=== PATIENT | female | born 2000 | race Caucasian/White ===

== ENCOUNTER 2021-04-19 12:10 | Emergency (ER) | payer MEDICAID, SELFPAY ==
[2021-04-19 12:18] VITALS: BP 113/66; PULSE 89; RESP 15; TEMP 36.9; O2SAT 100; BMI 20.2
--- NOTE | 2021-04-19 12:24 | USR_ITS ---
PROCEDURE INFORMATION: Exam: US , Limited Exam date and time: 04/19/2021 12:24 PM Age: 21 years old Clinical indication: 2nd trimester with vaginal bleeding. Threatened . TECHNIQUE: Imaging protocol: Real-time ultrasound of the maternal uterus with image documentation. Exam focused on the clinical indication. COMPARISON: US pelvic with transvaginal 04/15/2017 11:09 AM FINDINGS: There is a single, live intrauterine gestation with heart rate of 150 bpm. The cervix is closed and measures 3.1 cm in length. The position is vertex. The placenta is situated anteriorly. There is no evidence of placental abruption. US/US OB limited [id number] IMPRESSION: 1. Single, live intrauterine gestation. 2. No acute abnormality is identified. 3. The anatomy was not assessed.
--- NOTE | 2021-04-19 12:28 | W.ED.GENADLT ---
HPI - General Adult General: Chief complaint: Vaginal Bleeding Stated complaint: cramping, bleeding 18 weeks Time Seen by Provider: 04/19/21 12:22 History of Present Illness: HPI narrative: This patient is a 21-year-old female that is a G4, P2 at 18 weeks . Patient has had 1 spontaneous . Patient presents to the emergency department for a couple days worth of vaginal discharge than progressed in this noting bright red blood on panty liner. Patient has had to change to panty liners today due to bleeding. Patient states this has been uneventful up until now. Patient denies any recent sexual activity. Patient denies any significant pelvic cramping. Will do medical evaluation treat as needed Associated symptoms: Deny chest pain, dyspnea, headache(s), nausea, rash, palpitations or vomiting Review of Systems General: Reports: 10 or more systems reviewed and unremarkable except in HPI and below Const: Denies: fever(s), chills, body aches or fatigue Eyes: Denies: change in vision or blurry vision ENMT: Denies: throat pain, hoarseness or mouth pain Card: Denies: chest pain, palpitations, irregular heart rhythm, edema, swelling of feet/ankles or lightheadedness Resp: Denies: dyspnea, productive cough, non-productive cough, wheezing or pain on inspiration GI: Denies: abdominal pain, nausea or vomiting : Reports: vaginal bleeding and vaginal discharge; Denies: flank pain, difficulty voiding, dysuria, urinary frequency, urinary urgency or urinary hesitancy Musc: Denies: neck pain, back pain, extremity pain, extremity swelling, joint pain, joint swelling, joint redness, joint warmth or limited range of motion Skin/Breast: Denies: rash, pruritus, erythema or skin tenderness Neuro: Denies: headache(s), numbness in extremities or weakness in extremities Psych: Denies: anxiety or depression [facility] ED Female Reproductive History: Date of last menstrual period: 12/14/20 Physical Exam Const: COMMON NORMALS: no acute distress, average body habitus, patient oriented x3, no limitations, healthy appearing, alert and well nourished HENMT: COMMON NORMALS: normocephalic, atraumatic, hearing grossly normal bilaterally, external ears normal, EAC's normal, TM's normal bilaterally, Normal external nose present, Normal nasal mucous membranes and turbinates present, moist oral mucous membranes, oropharynx normal, dentition normal and gingiva normal HEAD & SCALP: normocephalic and atraumatic NOSE: Normal external nose present and Normal nasal mucous membranes and turbinates present EXTERNAL EAR: Yes external ears normal EXTERNAL AUDITORY CANAL: EAC's normal TYMPANIC MEMBRANE: TM's normal bilaterally Neck/C-Spine: COMMON NORMALS: full ROM, no lymphadenopathy, supple, no meningeal signs, no JVD, Thyroid normal and No carotid bruits THYROID: Thyroid normal Chest: COMMONS NORMALS: normal inspection of the chest, normal palpation of entire chest wall, normal inspection of the breasts and normal palpation of the breasts Breast/axilla inspection: Yes normal inspection of the breasts BREAST/AXILLA PALPATION: Yes normal palpation of the breasts Resp: COMMON NORMALS: normal respiratory effort, No retractions, No use of accessory muscles, clear to auscultation bilaterally and percussion normal AUSCULTATION: clear to auscultation bilaterally PERCUSSION: percussion normal Cardio: COMMON NORMALS: no JVD, regular rate, regular rhythm, S1 normal heart sound present, S2 normal heart sound present, No gallops present (Cardio), No clicks present (Cardio), No murmurs present (Cardio), No rub (Cardio) and Peripheral pulses 2+ throughout RATE: regular rate RHYTHM: regular rhythm HEART SOUNDS: S1 normal heart sound present and S2 normal heart sound present PERIPHERAL PULSES: Peripheral pulses 2+ throughout GI: COMMON NORMALS: Normal to inspection, nondistended, normoactive bowel sounds present, Soft to palpation, non-tender, No hepatosplenomegaly present, no masses and no bruits PALPATION: Yes Soft to palpation and Yes No hepatosplenomegaly present : COMMON NORMALS: Yes no CVA tenderness BLADDER/KIDNEY EXAM: Yes no CVA tenderness BIMANUAL EXAM - ADNEXA, OTHER: Yes Other (Deferred) Back/Pelvis: COMMON NORMALS: no CVA tenderness, thoracic and lumbar spine normal to inspection, no thoracic nor lumbar tenderness, thoraco-lumbar ROM normal and straight leg raise negative bilaterally Extremity: COMMON NORMALS: normal to inspection, full ROM, capillary refill normal, no joint enlargement, no clubbing, cyanosis or edema, no calf tenderness and no pedal edema Neuro: COMMON NORMALS: patient oriented x3 SENSORIUM/ORIENTATION: Yes alert MENINGEAL SIGNS: Yes no meningeal signs Course Vital Signs: Vital signs: Vital Signs Temperature 98.5 F 04/19/21 12:18 Pulse Rate 80 04/19/21 13:56 Respiratory Rate 16 04/19/21 13:56 Blood Pressure 119/59 04/19/21 13:56 Pulse Oximetry 100 04/19/21 13:56 MDM - General Adult MDM Narrative: Medical decision making narrative: This patient is a 21-year-old female that is a G4, P2 at 18 weeks . Patient has had 1 spontaneous . Patient presents to the emergency department for a couple days worth of vaginal discharge than progressed in this noting bright red blood on panty liner. Patient has had to change to panty liners today due to bleeding. Patient states this has been uneventful up until now. Patient denies any recent sexual activity. Patient denies any significant pelvic cramping. Medical Records: Attestation: I reviewed the patient's medical records. Lab Data: Attestation: I reviewed the patient's lab results. Labs: Lab Results 04/19/21 04/19/21 04/19/21 Range/Units 12:40 12:45 12:45 WBC 6.4 (4.0-10.0) 10^3/ uL RBC 4.08 L (4.1-5.3) 10^6/u L Hgb 11.2 L (11.5-15.3) g/dL Hct 33.8 L (37.0-47.0) % MCV 82.8 (81-99) fL MCH 27.5 L (28.0-34.0) pg MCHC 33.1 (30.0-36.0) g/dL RDW 14.2 (12.1-15.1) % Plt Count 258 (130-400) 10^3/c mm MPV 9.5 (7.4-10.4) fL Neut % (Auto) 66.7 % Lymph % (Auto) 23.6 % Sutton % (Auto) 7.7 % Eos % (Auto) 1.1 % Baso % (Auto) 0.6 % Neut # (Auto) 4.27 (1.8-7.7) 10^3/u L Lymph # (Auto) 1.5 (0.8-4.8) 10^3/u L Sutton # (Auto) 0.5 (0.2-0.9) 10^3/u L Eos # (Auto) 0.1 (0.0-0.8) 10^3/u L Baso # (Auto) 0.0 (0.0-0.1) 10^3/u L Nucleated RBC % (a uto) 0 % Nucleated RBCs # 0.0 /100WBC PT (12.1-14.9) SECO NDS INR (0.8-1.2) APTT (23.9-36.7) SECO NDS Sodium (136-145) mmol/L Potassium (3.5-5.1) mmol/L Chloride (98-107) mmol/L Carbon Dioxide (22-29) mmol/L Anion Gap (5-19) BUN (6-20) mg/dL Creatinine (0.5-0.9) mg/dL GFR Calculation (90-130) mL/min Glucose (65-115) mg/dL Calculated Osmolal ity (285-295) mOsm/k g Calcium (8.5-10.5) mg/dL Total Bilirubin (0.15-1.2) mg/dL AST (0-32) U/L ALT (0-33) U/L Alkaline Phosphata se (35-105) IU/L Total Protein (6.6-8.7) g/dL Albumin (3.5-5.2) g/dL Globulin (1.3-4.6) g/dL Ser , Miesha i-Qnt mIU/mL Urine Color Yellow (Yellow) Urine Appearance Hazy A (CLEAR) Urine pH 5 (5-7) Ur Specific Gravit y 1.025 (1.005-1.030) Urine Protein Neg (Negative) Urine Glucose (UA) Norm (Normal) Urine Ketones Negative (Negative) Urine Blood 3+ H (Negative) Urine Nitrate Negative (Negative) Urine Bilirubin 1+ H (Negative) Urine Urobilinogen 4 H (Negative) mg/dL Ur Leukocyte Ann ase 2+ H (Negative) Urine RBC 15-25 H (0-2) /hpf Urine WBC 25-40 H (0-5) /hpf Ur Squamous Epith Cells 15-25 H (0-5) /hpf Amorphous Sediment 1+ /hpf Urine Bacteria 2+ H (NONE) /hpf Urine Mucus 2+ /hpf Blood Type B Positive Rho(D) Type Positive / 4+ 04/19/21 04/19/21 04/19/21 Range/Units 12:45 12:45 12:45 WBC (4.0-10.0) 10^3/ uL RBC (4.1-5.3) 10^6/u L Hgb (11.5-15.3) g/dL Hct (37.0-47.0) % MCV (81-99) fL MCH (28.0-34.0) pg MCHC (30.0-36.0) g/dL RDW (12.1-15.1) % Plt Count (130-400) 10^3/c mm MPV (7.4-10.4) fL Neut % (Auto) % Lymph % (Auto) % Sutton % (Auto) % Eos % (Auto) % Baso % (Auto) % Neut # (Auto) (1.8-7.7) 10^3/u L Lymph # (Auto) (0.8-4.8) 10^3/u L Sutton # (Auto) (0.2-0.9) 10^3/u L Eos # (Auto) (0.0-0.8) 10^3/u L Baso # (Auto) (0.0-0.1) 10^3/u L Nucleated RBC % (a uto) % Nucleated RBCs # /100WBC PT 13.00 (12.1-14.9) SECO NDS INR 0.95 (0.8-1.2) APTT 29.8 (23.9-36.7) SECO NDS Sodium 128 L (136-145) mmol/L Potassium 3.5 (3.5-5.1) mmol/L Chloride 96 L (98-107) mmol/L Carbon Dioxide 23 (22-29) mmol/L Anion Gap 12.5 (5-19) BUN 6 (6-20) mg/dL Creatinine 0.3 L (0.5-0.9) mg/dL GFR Calculation 280.8 H (90-130) mL/min Glucose 85 (65-115) mg/dL Calculated Osmolal ity 263 L (285-295) mOsm/k g Calcium 8.6 (8.5-10.5) mg/dL Total Bilirubin 0.4 (0.15-1.2) mg/dL AST 13 (0-32) U/L ALT 13 (0-33) U/L Alkaline Phosphata se 98 (35-105) IU/L Total Protein 6.5 L (6.6-8.7) g/dL Albumin 3.9 (3.5-5.2) g/dL Globulin 2.6 (1.3-4.6) g/dL Ser , Miesha i-Qnt 9750.00 mIU/mL Urine Color (Yellow) Urine Appearance (CLEAR) Urine pH (5-7) Ur Specific Gravit y (1.005-1.030) Urine Protein (Negative) Urine Glucose (UA) (Normal) Urine Ketones (Negative) Urine Blood (Negative) Urine Nitrate (Negative) Urine Bilirubin (Negative) Urine Urobilinogen (Negative) mg/dL Ur Leukocyte Ann ase (Negative) Urine RBC (0-2) /hpf Urine WBC (0-5) /hpf Ur Squamous Epith Cells (0-5) /hpf Amorphous Sediment /hpf Urine Bacteria (NONE) /hpf Urine Mucus /hpf Blood Type Rho(D) Type Imaging Data^: US: Attestation: I personally reviewed and interpreted this imaging study as follows: Radiologist's impression: IMPRESSION: 1. Single, live intrauterine gestation. 2. No acute abnormality is identified. 3. The anatomy was not assessed. Discharge Plan Discharge Patient Disposition: Home Clinical Impression: Vaginal bleeding, Vaginal discharge Condition: Stable Prescriptions: New metronidazole [Flagyl] 500 mg tablet 500 mg PO BID 7 Days Qty: 14 RF: 0 No Action Humira Pen 80 mg SUBCUT Q12D RF: 0 1 tab PO DAILY RF: 0 Discharge Orders: Discharge ED (Routine); Ordered 04/19/21 Ordered By: Freddy Vargas Discharge Diet: Advance as tolerated Discharge Activity: Resume usual activity Patient Instructions: Opioid Safety Activity Restrictions/Additional Instructions: Take medications as instructed. Encourage p.o. fluids. Follow-up with your FIELD MARKETING REPRESENTATIVE in 2 to 3 days for further evaluation and treatment. Coding Level of Care Code ED Drywall Stripper for Chg Fwd Exam Comprehensive
[2021-04-19] MEDS: sodium chloride 0.9% 1,000 ML 999 ML IV (12:44)
--- NOTE | 2021-04-19 12:48 | PC.NURSE ---
heart tone 154
[2021-04-19 12:54] LABS: Basophils % 0.6 %; Eosinophils # 0.1 10^3/uL (0.0-0.8); Eosinophils % 1.1 %; Hematocrit 33.8 % (37.0-47.0); Hemoglobin 11.2 g/dL (11.5-15.3); Lymphocytes # 1.5 10^3/uL (0.8-4.8); Lymphocytes % 23.6 %; Mean Corpuscular HGB Conc 33.1 g/dL (30.0-36.0); Mean Corpuscular Hemoglobin 27.5 pg (28.0-34.0); Mean Corpuscular Volume 82.8 fL (81-99); Mean Platelet Volume 9.5 fL (7.4-10.4); Monocytes # 0.5 10^3/uL (0.2-0.9); Monocytes % 7.7 %; Neutrophils # 4.27 10^3/uL (1.8-7.7); Neutrophils % 66.7 %; Nucleated Red Blood Cells % 0 %; Platelet Count 258 10^3/cmm (130-400); Red Blood Count 4.08 10^6/uL (4.1-5.3); Red Cell Distribution Width 14.2 % (12.1-15.1); White Blood Count 6.4 10^3/uL (4.0-10.0)
[2021-04-19 12:57] LABS: Urine Appearance Hazy (CLEAR); Urine Color Yellow (Yellow); pH Urine 5 (5-7)
[2021-04-19 12:58] LABS: Add Urine Microscopic? YES; Bilirubin Urine 1+ (Negative); Blood Urine 3+ (Negative); Glucose Urine UA Norm (Normal); Ketones Urine Negative (Negative); Leukocyte Esterase Urine 2+ (Negative); Nitrate Urine Negative (Negative); Protein Urine Neg (Negative); Specific Gravity, Urine 1.025 (1.005-1.030); Urobilinogen Urine 4 mg/dL (Negative)
[2021-04-19 13:00] LABS: Amorphous Sediment Urine 1+ /hpf; Bacteria Urine 2+ /hpf; Mucus Urine 2+ /hpf; RBC Urine 15-25 /hpf (0-2); Squamous Epithelial Cell Urine 15-25 /hpf (0-5); WBC Urine 25-40 /hpf (0-5)
[2021-04-19 13:01] LABS: Add Urine Culture? No
[2021-04-19 13:12] LABS: INR 0.95 (0.8-1.2)
[2021-04-19 13:13] LABS: Partial Thromboplastin Time 29.8 SECONDS (23.9-36.7)
[2021-04-19 13:23] LABS: Alanine Aminotransferase 13 U/L (0-33); Albumin Level 3.9 g/dL (3.5-5.2); Alkaline Phosphatase 98 IU/L (35-105); Anion Gap 12.5 (5-19); Aspartate Amino Transferase 13 U/L (0-32); Blood Urea Nitrogen 6 mg/dL (6-20); Calcium 8.6 mg/dL (8.5-10.5); Carbon Dioxide 23 mmol/L (22-29); Chloride 96 mmol/L (98-107); Globulin 2.6 g/dL (1.3-4.6); Glomerular Filtration Rate 280.8 mL/min (90-130); Glucose 85 mg/dL (65-115); Osmolality Calculated 263 mOsm/kg (285-295); Potassium 3.5 mmol/L (3.5-5.1); Sodium 128 mmol/L (136-145); Total Bilirubin 0.4 mg/dL (0.15-1.2); Total Protein 6.5 g/dL (6.6-8.7)
[2021-04-19 13:56] VITALS: BP 119/59; PULSE 80; RESP 16; O2SAT 100
[2021-04-19] MEDS: metroNIDAZOLE 500 MG Tablet PO (15:30)
[2021-04-19 15:33] VITALS: BP 116/73; PULSE 87; O2SAT 100
== END 2021-04-19 15:34 | disposition home or self-care (01) ==
PROVIDERS: Emergency Provider Emergency Medicine
DX: O46.92 Antepartum hemorrhage, unspecified, second trimester (principal); O26.892 Other specified pregnancy related conditions, second trimester; N89.8 Other specified noninflammatory disorders of vagina; Z3A.18 18 weeks gestation of pregnancy
CPT/HCPCS: 76815; 80053; 81001; 84702; 85025; 85610; 85730; 86900; 87491; 87591; 96360; 99283; 99284; J7030

== ENCOUNTER → 2021-04-22 11:44 | Outpatient (BNVA) | payer MEDICAID, SELFPAY | PROVIDERS: Visit Provider Nurse Practitioner Women's Health | DX: O09.899 Supervision of other high risk pregnancies, unspecified trimester; Z3A.00 Weeks of gestation of pregnancy not specified | CPT/HCPCS: 81000 ==

== ENCOUNTER → 2021-05-04 09:30 | Outpatient (BNVA) | payer MEDICAID, SELFPAY | PROVIDERS: Visit Provider Obstetrics & Gynecology | DX: O09.899 Supervision of other high risk pregnancies, unspecified trimester (principal); Z3A.00 Weeks of gestation of pregnancy not specified | CPT/HCPCS: 80307; 81000; 85025; 86592; 86762; 86787; 86803; 86850; 86900; 87086; 87340; 87491; 87591; 87661; 87806; 88175 ==

== ENCOUNTER → 2021-06-11 13:01 | Outpatient (BNVA) | payer MEDICAID, SELFPAY | PROVIDERS: Visit Provider Counselor Professional | DX: F41.1 Generalized anxiety disorder (principal); F33.9 Major depressive disorder, recurrent, unspecified | CPT/HCPCS: 90834 ==

== ENCOUNTER 2021-06-26 16:23 | Outpatient (CLI) | payer MEDICAID, SELFPAY ==
[2021-06-26] VITALS (8 sets, daily range): BP systolic 94–116; BP diastolic 58–70; PULSE 73–80; RESP 16; TEMP 35.7–36.6; BMI 21.9
[2021-06-26 18:42] LABS: Protein Urine Neg (Negative); Specific Gravity, Urine 1.015 (1.005-1.030); Urine Appearance Cloudy (CLEAR); Urine Color Yellow (Yellow); pH Urine 9 (5-7)
[2021-06-26 18:43] LABS: Add Urine Microscopic? YES; Amorphous Sediment Urine 4+ /hpf; Bacteria Urine TRACE /hpf; Bilirubin Urine Neg (Negative); Blood Urine Neg (Negative); Glucose Urine UA Norm (Normal); Ketones Urine Negative (Negative); Leukocyte Esterase Urine 2+ (Negative); Mucus Urine TRACE /hpf; Nitrate Urine Negative (Negative); RBC Urine 0-4 /hpf (0-2); Squamous Epithelial Cell Urine 0-4 /hpf (0-5); Sulfosalicylic Acid Urine Negative (Negative); Urobilinogen Urine Norm (Negative)
[2021-06-26 18:44] LABS: Add Urine Culture? No
== END 2021-06-26 19:03 | disposition home or self-care (01) ==
LOC: OPOB 16:26 → OBGYN 16:27
PROVIDERS: Visit Provider Family Medicine
DX: O26.899 Other specified pregnancy related conditions, unspecified trimester (principal); Z3A.00 Weeks of gestation of pregnancy not specified; R42 Dizziness and giddiness; R11.0 Nausea
CPT/HCPCS: 81001; 99211

== ENCOUNTER 2021-07-19 17:10 | Outpatient (CLI) | payer MEDICAID, SELFPAY ==
[2021-07-19] VITALS (8 sets, daily range): BP systolic 109–117; BP diastolic 58–66; PULSE 73–82; RESP 17; TEMP 35.8; BMI 22.1
[2021-07-19] MEDS: cefTRIAXone 1,000 mg SDV 1000 MG IM (18:44)
[2021-07-19 19:17] LABS: Add Urine Microscopic? YES; Bilirubin Urine Neg (Negative); Blood Urine Neg (Negative); Glucose Urine UA Norm (Normal); Ketones Urine Negative (Negative); Leukocyte Esterase Urine 2+ (Negative); Nitrate Urine Negative (Negative); Protein Urine Neg (Negative); Urine Appearance Cloudy (CLEAR); Urine Color Yellow (Yellow); Urobilinogen Urine Norm (Negative); pH Urine 7 (5-7)
[2021-07-19 19:25] LABS: WBC Urine >100 /hpf (0-5)
[2021-07-19 19:26] LABS: Add Urine Culture? No; Bacteria Urine 3+ /hpf; Mucus Urine 2+ /hpf; Squamous Epithelial Cell Urine 40-55 /hpf (0-5)
== END 2021-07-19 19:00 | disposition home or self-care (01) ==
LOC: OPOB 17:19 → OBGYN 17:24
PROVIDERS: Visit Provider Family Medicine
DX: O21.9 Vomiting of pregnancy, unspecified (principal); Z3A.00 Weeks of gestation of pregnancy not specified; R10.9 Unspecified abdominal pain
CPT/HCPCS: 59025; 81001; 96372; 99211; J0696

== ENCOUNTER → 2021-07-20 15:04 | Outpatient (BNVA) | payer MEDICAID, SELFPAY | PROVIDERS: Visit Provider Counselor Professional | DX: F41.1 Generalized anxiety disorder (principal); F33.9 Major depressive disorder, recurrent, unspecified | CPT/HCPCS: 90834 ==

== ENCOUNTER 2021-08-09 11:02 | Outpatient (CLI) | payer MEDICAID, SELFPAY ==
[2021-08-09 11:11] VITALS: RESP 16
[2021-08-09 11:12] VITALS: BP 124/56; PULSE 64; BMI 22.6
[2021-08-09 11:27] VITALS: BP 120/61; PULSE 79
[2021-08-09 11:33] LABS: Actim Prom Negative
[2021-08-09 11:43] VITALS: BP 125/63; PULSE 77
[2021-08-09] MEDS: acetaminophen 500 mg Tablet 1000 MG PO (11:51)
[2021-08-09] MEDS: hyDROXYzine 25 mg Capsule 50 MG PO (11:51)
[2021-08-09 12:05] VITALS: BP 125/63; PULSE 77; TEMP 36.8
== END 2021-08-09 12:00 | disposition home or self-care (01) ==
LOC: OPOB 11:03 → OBGYN 11:04
PROVIDERS: Visit Provider Family Medicine
DX: O26.899 Other specified pregnancy related conditions, unspecified trimester (principal); Z3A.00 Weeks of gestation of pregnancy not specified; N89.8 Other specified noninflammatory disorders of vagina; Z91.81 History of falling
CPT/HCPCS: 59025; 84112; 99211

== ENCOUNTER → 2021-08-10 11:27 | Day surgery (SDC) | payer MEDICAID, SELFPAY ==
[2021-08-10 11:57] VITALS: BP 113/59; PULSE 68; RESP 18; TEMP 36.3; O2SAT 99; BMI 22.8
[2021-08-10] MEDS: iron sucrose 200 MG in sodium chloride 0.9% (100 ml) 100 ML 220 MG IV (12:15)
== END ==
PROVIDERS: PCP Family Medicine; Visit Provider Nurse Practitioner Women's Health
DX: O99.013 Anemia complicating pregnancy, third trimester (principal); O09.93 Supervision of high risk pregnancy, unspecified, third trimester; Z3A.00 Weeks of gestation of pregnancy not specified
CPT/HCPCS: 96365; J1756

== ENCOUNTER 2021-08-13 22:58 | Outpatient (CLI) | payer MEDICAID, SELFPAY ==
[2021-08-13] VITALS (7 sets, daily range): BP systolic 110–116; BP diastolic 55–56; PULSE 72–89; RESP 19; O2SAT 99–100; BMI 24.3
[2021-08-14] VITALS (25 sets, daily range): BP systolic 99–112; BP diastolic 54–64; PULSE 62–82; O2SAT 99–100
[2021-08-14] MEDS: sodium chloride 0.9% 1,000 ML 999 ML IV (00:20)
[2021-08-14 00:40] LABS: Basophils % 0.4 %; Eosinophils # 0.1 10^3/uL (0.0-0.8); Eosinophils % 1.1 %; Hematocrit 27.4 % (37.0-47.0); Hemoglobin 8.9 g/dL (11.5-15.3); Lymphocytes # 2.3 10^3/uL (0.8-4.8); Lymphocytes % 22.6 %; Mean Corpuscular HGB Conc 32.5 g/dL (30.0-36.0); Mean Corpuscular Hemoglobin 26.2 pg (28.0-34.0); Mean Corpuscular Volume 80.6 fl (81-99); Mean Platelet Volume 10.1 fL (7.4-10.4); Monocytes # 0.8 10^3/uL (0.2-0.9); Monocytes % 7.6 %; Neutrophils # 6.83 10^3/uL (1.8-7.7); Nucleated Red Blood Cells % 0 %; Platelet Count 250 10^3/cmm (130-400); Red Cell Distribution Width 14.5 % (12.1-15.1); White Blood Count 10.2 10^3/uL (4.0-10.0)
[2021-08-14 00:45] LABS: Add Urine Culture? No; Add Urine Microscopic? YES; Bacteria Urine 2+ /hpf; Bilirubin Urine Neg (Negative); Blood Urine Neg (Negative); Glucose Urine UA Norm (Normal); Ketones Urine Negative (Negative); Leukocyte Esterase Urine 2+ (Negative); Mucus Urine 1+ /hpf; Nitrate Urine Negative (Negative); Protein Urine Neg (Negative); Squamous Epithelial Cell Urine 40-55 /hpf (0-5); Sulfosalicylic Acid Urine Negative (Negative); Urine Appearance SL Hazy (CLEAR); Urine Color Yellow (Yellow); Urobilinogen Urine Norm (Negative); WBC Urine 25-40 /hpf (0-5); pH Urine 8 (5-7)
[2021-08-14 01:07] LABS: Alanine Aminotransferase 9 U/L (0-33); Albumin Level 3.1 g/dL (3.5-5.2); Alkaline Phosphatase 97 IU/L (35-105); Anion Gap 14.4 (5-19); Aspartate Amino Transferase 11 U/L (0-32); Blood Urea Nitrogen 5 mg/dL (6-20); Calcium 8.4 mg/dL (8.5-10.5); Carbon Dioxide 21 mmol/L (22-29); Chloride 105 mmol/L (98-107); Globulin 3.1 g/dL (1.3-4.6); Glomerular Filtration Rate 280.8 mL/min (90-130); Glucose 83 mg/dL (65-115); Osmolality Calculated 280 mOsm/kg (285-295); Potassium 3.4 mmol/L (3.5-5.1); Sodium 137 mmol/L (136-145); Total Bilirubin 0.2 mg/dL (0.15-1.2); Total Protein 6.2 g/dL (6.6-8.7)
--- NOTE | 2021-08-14 12:05 | PC.NURSE ---
called Yvonne Bunch, gave prescription information including: amoxicillin 875 mg BID for 7 days #14 no refills. Prescribing physician was Dr. Victor Hugo Mendoza.
== END 2021-08-14 02:00 | disposition home or self-care (01) ==
LOC: OPOB 23:09 → OBGYN 23:10
PROVIDERS: PCP Family Medicine; Visit Provider Family Medicine
DX: O26.899 Other specified pregnancy related conditions, unspecified trimester (principal); Z3A.00 Weeks of gestation of pregnancy not specified; R51.9 Headache, unspecified; H53.9 Unspecified visual disturbance
CPT/HCPCS: 36415; 59025; 80053; 81001; 85025; 99211; J7030

== ENCOUNTER → 2021-08-17 12:19 | Day surgery (SDC) | payer MEDICAID, SELFPAY ==
[2021-08-17 12:28] VITALS: BMI 22.8
[2021-08-17 12:31] VITALS: BP 106/57; PULSE 95; RESP 15; TEMP 36.2; O2SAT 96
[2021-08-17] MEDS: iron sucrose 200 MG in sodium chloride 0.9% (100 ml) 100 ML 220 MG IV (12:50)
== END ==
PROVIDERS: PCP Family Medicine; Visit Provider Nurse Practitioner Women's Health
DX: O99.013 Anemia complicating pregnancy, third trimester (principal); Z3A.00 Weeks of gestation of pregnancy not specified
CPT/HCPCS: 83993; 87493; 87506; 96365; J1756

== ENCOUNTER → 2021-08-24 12:56 | Day surgery (SDC) | payer MEDICAID, SELFPAY ==
[2021-08-24 13:00] VITALS: BP 108/52; PULSE 80; RESP 18; TEMP 36.1; O2SAT 95
[2021-08-24] MEDS: iron sucrose 200 MG in sodium chloride 0.9% (100 ml) 100 ML 220 MG IV (13:10)
== END ==
PROVIDERS: PCP Family Medicine; Visit Provider Nurse Practitioner Women's Health
DX: O99.013 Anemia complicating pregnancy, third trimester (principal); Z3A.00 Weeks of gestation of pregnancy not specified
CPT/HCPCS: 96365; J1756

== ENCOUNTER → 2021-09-02 11:04 | Day surgery (SDC) | payer MEDICAID, SELFPAY ==
[2021-09-02 11:10] VITALS: BP 106/54; PULSE 87; RESP 18; TEMP 36.3; O2SAT 99; BMI 23.6
[2021-09-02] MEDS: iron sucrose 200 MG in sodium chloride 0.9% (100 ml) 100 ML 220 MG IV (11:42)
== END ==
PROVIDERS: PCP Family Medicine; Visit Provider Nurse Practitioner Women's Health
DX: O09.93 Supervision of high risk pregnancy, unspecified, third trimester (principal); O99.013 Anemia complicating pregnancy, third trimester; Z3A.00 Weeks of gestation of pregnancy not specified
CPT/HCPCS: 96365; J1756

== ENCOUNTER → 2021-09-07 11:20 | Day surgery (SDC) | payer MEDICAID, SELFPAY ==
[2021-09-07 11:45] VITALS: BP 103/53; PULSE 89; RESP 18; TEMP 36.3; O2SAT 97
[2021-09-07] MEDS: iron sucrose 200 MG in sodium chloride 0.9% (100 ml) 100 ML 220 MG IV (11:58)
== END ==
PROVIDERS: PCP Family Medicine; Visit Provider Nurse Practitioner Women's Health
DX: O99.013 Anemia complicating pregnancy, third trimester (principal); D64.9 Anemia, unspecified
CPT/HCPCS: 96365; J1756

== ENCOUNTER 2021-09-09 20:15 | Outpatient (CLI) | payer MEDICAID, SELFPAY ==
[2021-09-09 20:28] VITALS: BP 120/71; PULSE 96
[2021-09-09 20:33] VITALS: RESP 15
[2021-09-09 20:34] VITALS: BMI 25.9
[2021-09-09 20:49] VITALS: BP 118/63; PULSE 80
[2021-09-09 21:09] VITALS: BP 114/67; PULSE 109
[2021-09-09 21:25] LABS: Actim Prom Negative
[2021-09-09 21:29] VITALS: BP 112/57; PULSE 100
== END 2021-09-09 21:38 | disposition home or self-care (01) ==
LOC: OPOB 20:25 → OBGYN 20:26
PROVIDERS: PCP Family Medicine; Visit Provider Family Medicine
DX: O47.9 False labor, unspecified (principal)
CPT/HCPCS: 59025; 84112; 99211

== ENCOUNTER 2021-09-16 07:26 | Inpatient (IN) | payer MEDICAID, SELFPAY ==
[2021-09-16] VITALS (77 sets, daily range): BP systolic 97–187; BP diastolic 50–80; PULSE 60–113; RESP 16–17; TEMP 36.4–36.9; O2SAT 87–100; BMI 26.7
[2021-09-16] MEDS: oxytocin 30 UNIT/500 ML BAG IV (08:51)
[2021-09-16] MEDS: dextrose 5%-lactated ringers 1,000 ML 125 ML IV (08:52)
[2021-09-16 10:45] LABS: Basophils # 0.1 10^3/uL (0.0-0.1); Basophils % 0.6 %; Eosinophils # 0.1 10^3/uL (0.0-0.8); Eosinophils % 0.6 %; Hematocrit 32.8 % (37.0-47.0); Lymphocytes # 1.8 10^3/uL (0.8-4.8); Lymphocytes % 17.3 %; Mean Corpuscular HGB Conc 33.5 g/dL (30.0-36.0); Mean Corpuscular Hemoglobin 28.2 pg (28.0-34.0); Mean Corpuscular Volume 84.1 fl (81-99); Mean Platelet Volume 9.8 fL (7.4-10.4); Monocytes # 0.9 10^3/uL (0.2-0.9); Monocytes % 8.4 %; Neutrophils # 7.37 10^3/uL (1.8-7.7); Nucleated Red Blood Cells % 0 %; Platelet Count 271 10^3/cmm (130-400); Red Cell Distribution Width 19.3 % (12.1-15.1); White Blood Count 10.2 10^3/uL (4.0-10.0)
[2021-09-16] MEDS: lactated ringers 1,000 ML 999 ML IV ×2 (11:30→12:32)
--- NOTE | 2021-09-16 11:53 | P.ANESASSM_ITS ---
Pre-Anesthetic Assessment Pre-Anesthetic Assessment: Height/Weight: Height 1.6 m Weight 68.492 kg Pulse Resp BP Pulse Ox 76 17 124/66 93 09/16/21 11:51 09/16/21 08:06 09/16/21 11:49 09/16/21 11:51 Preop Diagnosis: Labor pain Proposed Procedure: ALBAN Was Beta Jose taken within 24 hours: N/A Was Clonidine taken within 24 hours: N/A Social: Social History: No alcohol and No tobacco Exam: Pre-Anes Outpt Exam: alert, oriented x 3, clear to auscultation bilaterally and regular rate & rhythm Airway: Submandibular: WNL Cervical ROM: WNL MP: 2 Dentition: Full History/ROS: No significant history except as noted and No significant complaints Pulmonary: Pulmonary: Asthma CV/HEM: CV/HEM: None reported : : None reported Hepatic: Hepatic: None reported GI: Comments: Chrones Metabolic: Metabolic: None reported Musc/skel: Musc/skel: None reported Neuropsych: Neuropsych: None reported Anesthetic Plan: ASA status: 2 Anesthesia: Anesthesia Evaluation and Regional (specify below) Other: ALBAN Risk of > 500 ml blood loss (7ml/kg in children): No Meds/Allergies Current Medications: Current Medications Generic Name Dose Route Start Last Admin Trade Name Freq PRN Reason Stop Dose Admin Oxytocin 30 unit in 500 ml s @ 1 mls/hr 09/16/21 08:15 09/16/21 10:25 Pitocin IV 13 milliunit/min .Q24H ZAID 13 mls/hr Titration Protocol 1 MILLIUNIT/MIN Dextrose/Lactated Ringer's 1,000 mls @ 125 m ls/hr 09/16/21 08:15 09/16/21 08:52 Dextrose 5%-Lact ated Ringers IV 125 mls/hr .Q8H ZAID Administration PFSH Anesthesia PFSH: Medical History (Updated 07/22/21 @ 16:46 by Karen Johnson) Crohn disease No pertinent past medical history neghx: htn,dm,thyroid,dvt/pe PCP: none Psychiatric care Surgical History History of tonsillectomy and adenoidectomy (~2006) Hx of wisdom tooth extraction (~2016) Family History Family/Other Colon cancer Paternal Great Uncle--dx age 43 Thyroid disease Maternal side in general Grandmother Diabetes Maternal Heart disease Maternal Hypertension Maternal Grandfather Heart disease Paternal Denies family history of Ovarian cancer Hypercholesteremia Breast cancer Uterine cancer Stroke Female Reproductive History: Date of last menstrual period: 12/14/20 : 4 Data Anesthesia CBC & Chem 7: 09/16/21 07:50 Other Labs: Laboratory Results - last 48 hr 09/16/21 07:50 WBC 10.2 H RBC 3.90 L Hgb 11.0 L Hct 32.8 L MCV 84.1 MCH 28.2 MCHC 33.5 RDW 19.3 H Plt Count 271 MPV 9.8 Neut % (Auto) 72.0 Lymph % (Auto) 17.3 Reynolds % (Auto) 8.4 Eos % (Auto) 0.6 Baso % (Auto) 0.6 Neut # (Auto) 7.37 Lymph # (Auto) 1.8 Reynolds # (Auto) 0.9 Eos # (Auto) 0.1 Baso # (Auto) 0.1 Nucleated RBC % (auto) 0 Nucleated RBCs # 0.0 Cardiac Studies: No Data to Display
--- NOTE | 2021-09-16 11:57 | ANES.PROC ---
Anesthesia Procedures Procedure/Date: 09/16/21 Epidural: Time Out Performed: Yes Consents Signed: Procedure Consent Consent: requested by attending/covering physician, from patient, risks and benefits reviewed and patient agrees to proceed Lumbar Level: L3-L4 Epidural position: sitting Epidural procedure: sterile prep of area, 1% lidocaine to numb the area, 18 g needle, neg for paresthesia, test dose given, 1.5% xylocaine 1:200k epi (5cc), 0.2% Ropivacaine bolus ml (5cc of 2% ropiv), no systemic response, sterile dressing applied, L.U.D. no apparent complications and 0.2% Ropiavacaine @ mls/hr (13cc/hour)
--- NOTE | 2021-09-16 16:22 | PM.OPHPUD ---
Labor & Delivery H&P Update Date of Procedure: September 16, 2021 Date H&P Performed: 09/10/21 Admission Diagnosis: Preop diagnosis: Labor pain Related Problem List Diagnoses (1) Supervision of other high-risk : This is a 21-year-old at 39 weeks 3 days gestation who is here for an MFM recommendation. The patient has Crohn's disease and receives Humira for this she was being followed by MFM for high risk and growth. Dr. Fuentes recommended delivery in the 39th week. (2) Crohn disease:
--- NOTE | 2021-09-16 16:24 | P.PCNOB_ITS ---
Delivery Note: Date of delivery: September 16, 2021 Pre-Delivery Course: The patient's cervix was favorable for induction so she was started on Pitocin. She has received an epidural for pain management and is very comfortable. I was notified by nursing that the patient began having recurrent late decelerations that were not resolving with position changes . There is good variability with heart tones around 150. The patient was 8 cm dilated, completely effaced and -3 station. With contraction artificial rupture of membranes was performed digitally and clear fluid was noted. The patient has a history of fast labors and will hopefully progress mark ckly. With the excellent heart tone variability I am willing to tolerate the lates a little longer to see how she progresses since her water has been broken. History History History 4 Term 2 Miscarriages/Ectopic 1 0 Living Children 2 A&P Assessment and plan (1) Supervision of other high-risk : Status: Acute (2) Crohn disease: Status: Acute Qualifiers: Gastrointestinal tract location: unspecified location Digestive disease complication type: unspecified complication Qualified Code(s): K50.919 - Crohn's disease, unspecified, with unspecified complications Coding Level of Care Code Acute Airplane Electrical Repairer for Chg Fwd Diagnoses Supervision of other high-risk O09.899 Crohn disease K50.919 Gastrointestinal tract location: unspecified location Digestive disease complication type: unspecified complication
--- NOTE | 2021-09-16 17:24 | P.PCNOB_ITS ---
Delivery Note: Date of delivery: September 16, 2021 Delivery: This is a 21-year-old G4 now P3 who was admitted for induction at 39 weeks 3 days gestation for high risk secondary to Humira use for Crohn's disease. She was started on Pitocin and received an epidural for pain management. She had artificial rupture of membranes with clear fluid. Rupture of membranes was approximately 1 hour prior to delivery. She was GBS negative. She had a normal spontaneous vaginal delivery of a viable male infant weight 3340 g, 7 pounds 6 ounces over an intact perineum. The infant was suctioned at delivery and placed on the mother's chest. The cord was clamped and cut. The placenta was delivered grossly intact and normal to inspection. There were no lacerations. Estimated blood loss 100 mL. History History History 4 Term 2 Miscarriages/Ectopic 1 0 Living Children 2 A&P Assessment and plan (1) Supervision of other high-risk : Status: Acute (2) Crohn disease: Status: Acute Qualifiers: Gastrointestinal tract location: unspecified location Digestive disease complication type: unspecified complication Qualified Code(s): K50.919 - Crohn's disease, unspecified, with unspecified complications Coding Level of Care Code Acute Medical Billing And Coding Specialist for g Fwd Diagnoses Supervision of other high-risk O09.899 Crohn disease K50.919 Gastrointestinal tract location: unspecified location Digestive disease complication type: unspecified complication
[2021-09-16] MEDS: acetaminophen 325 mg Tablet 650 MG PO (18:29)
[2021-09-16] MEDS: ibuprofen 800 mg tablet PO (21:41)
[2021-09-17] VITALS (8 sets, daily range): BP systolic 97–124; BP diastolic 46–60; PULSE 56–77; RESP 16; TEMP 35.3–36.7
[2021-09-17] MEDS: acetaminophen 325 mg Tablet 650 MG PO (04:07)
[2021-09-17 05:46] LABS: Hematocrit 30.8 % (37.0-47.0); Hemoglobin 10.2 g/dL (11.5-15.3); Mean Corpuscular HGB Conc 33.1 g/dL (30.0-36.0); Mean Corpuscular Hemoglobin 27.9 pg (28.0-34.0); Mean Corpuscular Volume 84.2 fl (81-99); Mean Platelet Volume 9.6 fL (7.4-10.4); Platelet Count 230 10^3/cmm (130-400); Red Blood Count 3.66 10^6/uL (4.1-5.3); Red Cell Distribution Width 19.5 % (12.1-15.1); White Blood Count 17.3 10^3/uL (4.0-10.0)
--- NOTE | 2021-09-17 09:25 | PC.NURSE ---
While rounding with patient she stated that she was hurting where her epidural was placed. Area of insertion showed no signs of bruising or a raised area. Patient stated that she was having trouble sitting and laying in bed. This nurse notified the anesthesia day phone and requested they come and assess the patient. Primary nurse notified that anesthesia stated they were okay giving the patient something stronger than ibuprofen or tylenol as long as the primary approved. Primary nurse stated she would go in the room for assessment and medication administration.
[2021-09-17] MEDS: ibuprofen 800 mg tablet PO ×2 (09:31→14:22)
[2021-09-17] MEDS: TRAMadol 50 mg Tablet PO (09:31)
[2021-09-17] MEDS: prenatal vitamin Capsule 1 CAP PO (09:32)
[2021-09-17] MEDS: lidocaine 5% Patch 1 PATCH TOPICAL (15:40)
--- NOTE | 2021-09-17 17:10 | P.DS_ITS ---
Discharge Providers Date of Admission: 09/16/21 07:26 Date of Discharge: September 17, 2021 Attending Provider at Admission: Marie Cage MD Attending Provider at Discharge: Marie Cage MD Primary Care Provider: Marie Cage MD Diagnoses at Discharge Discharge Diagnosis (1) Supervision of other high-risk : Status: Acute (2) Crohn disease: Status: Acute Qualifiers: Gastrointestinal tract location: unspecified location Digestive disease complication type: unspecified complication Qualified Code(s): K50.919 - Crohn's disease, unspecified, with unspecified complications Reason for Visit Reason for Visit: INDUCTION Hospital Course Hospital Course This is a 21-year-old G4 now P3 who was admitted for an induction. She had a normal spontaneous vaginal delivery of a viable male infant. Mother did well after delivery. She was ambulating, tolerating a regular diet, had good pain control and was comfortable with discharge home. Physical Exam Narrative: EXAM NARRATIVE: Alert and oriented but with usual flat affect. Heart regular rate and rhythm no murmurs, lungs clear to auscultation bilaterally, abdomen soft and nontender, fundus firm U- 3, no calf tenderness no edema. Discharge Data Vitals: Last Vital Signs Temp 97.7 F 09/17/21 18:30 Pulse 77 09/17/21 18:37 Resp 16 09/17/21 18:30 BP 124/59 09/17/21 18:37 Pulse Ox 87 L 09/16/21 12:10 Discharge Plan Discharge Patient Disposition: Home Prescriptions: Continued Gummies 400 mcg-35 mg- 25 mg-5 mg tablet,chewable 1 tab PO DAILY RF: 0 Humira(CF) Pen 40 mg/0.4 mL pen injector kit 40 mg SUBCUT DIRECTED RF: 0 prednisone 20 mg tablet 20 mg PO TID RF: 0 Discharge Orders: Discharge Order (Routine); Ordered 09/17/21 Ordered By: Marie Cage Referrals: Marie Cage MD [Primary Care Provider] - 10/13/21 10:00 am Discharge Diet: Usual diet Discharge Activity: Limit activity as instructed Patient Instructions: Depression (DC), Bleeding (DC), Preeclampsia and Eclampsia After Delivery (GEN), OB Discharge Report, OB Food/Drug Interaction Guide, OB Care at Home, Opioid Safety, OB Vaginal Deliveries Discharge Attestations Time Spent in Discharge Care*: less than 30 min Quality Metrics Clinical Quality Measures During this hospital stay, did patient experience: None Coding Level of Care Code Acute Chg [facility] note Diagnoses Supervision of other high-risk O09.899 Crohn disease K50.919 Gastrointestinal tract location: unspecified location Digestive disease complication type: unspecified complication
--- NOTE | 2021-09-17 19:02 | PC.NURSE ---
Pt initially wanted flu vaccine upon admission, at discharge pt declined.
[2021-09-18 17:04] LABS: Coronavirus Test Green County Not Detected
--- NOTE | 2021-09-19 11:41 | PC.NURSE ---
THIS BUNDLE SORTER RECEIVED A CALL THIS AM FROM VIKTOR STATED THAT HER 2,1 YEAR OLD CHILDREN ARE BEING TAKEN CARE OF BY THEIR GREAT GRANDMOTHER SINCE 09/15 AND THAT GRANDMA IS NOW COVID POSITIVE. THE DOCTOR TOLD CLAUDIA THAT SHE SHOULD KEEP CHILDREN UNTIL TUESDAY TO MAKE SURE THEY DO NOT GET SICK. VIKTOR STATES THAT BOTH HER AND HER WERE EXPOSED TO HER ON THE WHEN THEY DROPPED THEM OFF. SHE DENIES ANY SYMPTOMS AT THIS TIME. THIS BUNDLE SORTER CALLED DR. BRADALES BECAUSE DR. BARAJAS IS OUT OF TOWN AND TALKED WITH HIM AND HE AGREED THAT THE GRANDMA KEEPING THE OTHER CHILDREN WOULD BE THE BEST IDEA SO I CALLED VIKTOR BACK AND TOLD HER WHAT DR. BARDALES SAID AND ENCOURAGED HER TO HANG IN THERE AND SHE SAID THAT SHE MAY HAVE THE OTHER GRANDMA WHO HAS ALSO BEEN EXPOSED TAKE THE KIDS AND GET THEM TESTED AND THEN BRING THEM HOME. I AGAIN ENCOURAGED HER TO LET THE GRANDMA CONTINUE CARING FOR THEM UNTIL TUESDAY BUT THAT IS UP TO HER TO DECIDE. TOLD TO CALL US IF SHE HAS ANY QUESTIONS OR CONCERNS.
--- NOTE | 2021-09-21 10:28 | ANE.PACU2 ---
Inpatient post-anesthesia follow up: Vital signs: Temperature 97.7 F Pulse Rate 77 Respiratory Rate 16 Blood Pressure 124/59 Pulse Oximetry 87 Oxygen Delivery Me thod Room Air Oxygen Flow Rate Fraction of Inspir ed Oxygen Hydration adequate: Yes Nausea and vomiting: No Pain level: 2 Mental status: Baseline
== END 2021-09-17 18:50 | disposition home or self-care (01) | DRG 806 ==
LOC: OPOB 07:33 → OBGYN 07:34 → OPOB 17:11 → OBGYN 17:11
PROVIDERS: Admitting Provider Family Medicine; PCP Family Medicine; Visit Provider Family Medicine
DX: O99.62 Diseases of the digestive system complicating childbirth (principal); K50.90 Crohn's disease, unspecified, without complications; Z37.0 Single live birth; O99.02 Anemia complicating childbirth; D64.9 Anemia, unspecified; O76 Abnormality in fetal heart rate and rhythm complicating labor and delivery; Z3A.39 39 weeks gestation of pregnancy; O75.89 Other specified complications of labor and delivery; K21.9 Gastro-esophageal reflux disease without esophagitis; Z88.0 Allergy status to penicillin
CPT/HCPCS: 36415; 59025; 59409; 85025; 85027; 87635; 99211; J2795

== ENCOUNTER → 2021-09-24 14:35 | Outpatient (BNVA) | payer MEDICAID, SELFPAY | PROVIDERS: PCP Family Medicine; Visit Provider Counselor Professional | DX: F41.1 Generalized anxiety disorder (principal); F33.9 Major depressive disorder, recurrent, unspecified | CPT/HCPCS: 90834 ==

== ENCOUNTER → 2021-12-04 13:28 | Outpatient (BNVA) | payer MEDICAID, SELFPAY | PROVIDERS: PCP Family Medicine; Visit Provider Counselor Professional | DX: F41.1 Generalized anxiety disorder (principal); F33.9 Major depressive disorder, recurrent, unspecified | CPT/HCPCS: 90837; 90834 ==

== ENCOUNTER → 2021-12-08 10:47 | Outpatient (BNVA) | payer MEDICAID, SELFPAY | PROVIDERS: PCP Family Medicine; Visit Provider Counselor Professional | DX: F41.1 Generalized anxiety disorder (principal); F33.9 Major depressive disorder, recurrent, unspecified | CPT/HCPCS: 90834 ==

== ENCOUNTER → 2021-12-23 13:49 | Outpatient (BNVA) | payer MEDICAID, SELFPAY | PROVIDERS: PCP Family Medicine; Visit Provider Counselor Professional | DX: F41.1 Generalized anxiety disorder (principal); F33.9 Major depressive disorder, recurrent, unspecified | CPT/HCPCS: 90847 ==

== ENCOUNTER → 2022-01-06 14:53 | Outpatient (BNVA) | payer MEDICAID, SELFPAY | PROVIDERS: PCP Family Medicine; Visit Provider Counselor Professional | DX: F41.1 Generalized anxiety disorder (principal); F33.9 Major depressive disorder, recurrent, unspecified | CPT/HCPCS: 90834 ==

== ENCOUNTER → 2022-01-21 09:45 | Outpatient (BNVA) | payer MEDICAID, SELFPAY | PROVIDERS: PCP Family Medicine; Visit Provider Counselor Professional | DX: F41.1 Generalized anxiety disorder (principal); F33.9 Major depressive disorder, recurrent, unspecified | CPT/HCPCS: 90834 ==

== ENCOUNTER → 2022-02-03 10:26 | Outpatient (BNVA) | payer MEDICAID, SELFPAY | PROVIDERS: PCP Family Medicine; Visit Provider Counselor Professional | DX: F41.1 Generalized anxiety disorder (principal); F33.9 Major depressive disorder, recurrent, unspecified | CPT/HCPCS: 90834 ==

== ENCOUNTER 2022-02-21 21:07 | Emergency (ER) | payer MEDICAID, SELFPAY ==
[2022-02-21 21:09] VITALS: BP 125/84; PULSE 75; RESP 20; TEMP 36.8; O2SAT 97; BMI 22.1
--- NOTE | 2022-02-21 21:22 | W.ED.GIBLEED ---
HPI - GI Bleed General: Chief complaint: GI Bleed Stated complaint: Bloody stool Time Seen by Provider: 02/21/22 21:16 History of Present Illness: Ms. Michel is a 22-year-old lady with significant past medical history of Crohn's disease not currently on medication who presents to the emergency department due to abdominal discomfort and blood in stool. She reports approximately 2 to 3 weeks of generalized abdominal cramping which has become more frequent and intense with maximal intensity occurring yesterday. Additionally yesterday evening she had blood in her stool and today she had clots in her stool as well. She endorses no specific provoking or exacerbating factors for abdominal discomfort. She has had similar episodes in the past though not this severe. She typically follows in [facility] for symptoms and has not recently had CT imaging. No other specific changes in health, exacerbating, or alleviating factors identified. Onset (ago): week(s) Pain Consistency: intermittent Severity: moderate Relieving factors: none Exacerbating factors: none Context: other Review of Systems General: Reports: 10 or more systems reviewed and unremarkable except in HPI and below PFSH ED PFSH: Medical History Crohn disease No pertinent past medical history neghx: htn,dm,thyroid,dvt/pe PCP: none Psychiatric care Surgical History History of tonsillectomy and adenoidectomy (~2006) Hx of wisdom tooth extraction (~2017) Family History Family/Other Colon cancer Paternal Great Uncle--dx age 43 Thyroid disease Maternal side in general Grandmother Diabetes Maternal Heart disease Maternal Hypertension Maternal Grandfather Heart disease Paternal Denies family history of Ovarian cancer Hypercholesteremia Breast cancer Uterine cancer Stroke Female Reproductive History: Date of last menstrual period: 12/14/20 Physical Exam Const: COMMON NORMALS: alert GENERAL APPEARANCE: cooperative and well developed HENMT: COMMON NORMALS: normocephalic and atraumatic HEAD & SCALP: normocephalic and atraumatic Eye: COMMON NORMALS: conjunctivae normal CONJUNCTIVA: Yes conjunctivae normal SCLERA: sclerae normal Neck/C-Spine: COMMON NORMALS: supple GENERAL: Yes trachea midline Resp: COMMON NORMALS: normal respiratory effort EFFORT & INSPECTION: Yes able to speak in complete sentences Cardio: COMMON NORMALS: regular rate and regular rhythm RATE: regular rate RHYTHM: regular rhythm GI: COMMON NORMALS: Soft to palpation PALPATION: Yes Soft to palpation, Yes Tenderness to palpation present (GI), No Guarding due to palpation present (GI) and No Rigid due to palpation PERCUSSION: normal to percussion Extremity: GENERAL: Yes normal exam except as noted and No edema Neuro: COMMON NORMALS: moves all extremities SENSORIUM/ORIENTATION: Yes alert and No Orientation impaired Psych: COMMON NORMALS: mental status grossly normal and Normal thought process present THOUGHT PROCESS: Normal thought process present Course ED course: - Patient was seen and evaluated by me at bedside - Patient placed on cardiac monitors, IV access obtained - Initial evaluation notable for exam as above - Labs personally interpreted by me - Labs notable for no leukocytosis, normal hemoglobin. Metabolic panel unremarkable with negative inflammatory markers urinalysis with squamous epithelial contamination. - I discussed results of laboratory studies including low clinical suspicion given findings on labs for acute pathology that would show up on CT scan however I did offer CT scan which the patient was comfortable foregoing at this time. - Upon serial reexamination after treatment the patient was improved - Based on patient history, evaluation, and testing as interpreted the most likely cause of the patient's condition is blood per rectum possibly secondary to hemorrhoids or Crohn's flare - The results of ED evaluation were discussed with the patient including prescriptions and/or symptomatic cares (if applicable) including appropriate and responsible use, followup plan, and return precautions. The patient verbalized understanding and felt safe for discharge. - Patient discharged in satisfactory condition. Note: Click bubbles or prepopulated rene in note writing are used for assistance with data collection and billing and are inherently more limited than narrative and other text portions of this note. Please use narrative for additional clinical history and defer to narrative/free test for any case of contradictory information. If information appears in only free text or click bubble it should be considered present or absent as reported. Please contact note securities underwriter for clarifications of clinical information or contradictory information. MDM is a brief summary, contradictory or erroneous seeming information should be clarified and full note should be reviewed. Vital Signs: Vital signs: Vital Signs Temperature 98.2 F 02/21/22 21:09 Pulse Rate 87 02/21/22 23:11 Respiratory Rate 16 02/21/22 23:11 Blood Pressure 122/82 02/21/22 23:11 Pulse Oximetry 97 02/21/22 23:11 MDM - GI Bleed Medical Decision Making 22-year-old lady with history of Crohn's not currently on medication presenting with blood per rectum. Hemoglobin satisfactory and negative inflammatory markers. Patient has not had fevers. Offered CT though discussed low clinical suspicion for significant finding, patient comfortable foregoing. Satisfactory for outpatient management with strict return precautions. Medical Records I reviewed the patient's medical records. Lab Data I reviewed the patient's lab results. : 02/21/22 21:40 02/21/22 21:40 Laboratory Results WBC 6.6 10^3/uL (4.0-10.0) 02/21/22 21:40 RBC 4.29 10^6/uL (4.1-5.3) 02/21/22 21:40 Hgb 12.1 g/dL (11.5-15.3) 02/21/22 21:40 Hct 36.5 % (37.0-47.0) L 02/21/22 21:40 MCV 85.1 fl (81-99) 02/21/22 21:40 MCH 28.2 pg (28.0-34.0) 02/21/22 21:40 MCHC 33.2 g/dL (30.0-36.0) 02/21/22 21:40 RDW 12.9 % (12.1-15.1) 02/21/22 21:40 Plt Count 298 10^3/cmm (130-400) 02/21/22 21:40 MPV 9.6 fL (7.4-10.4) 02/21/22 21:40 Neut % (Auto) 61.2 % 02/21/22 21:40 Lymph % (Auto) 28.3 % 02/21/22 21:40 [place] % (Auto) 8.5 % 02/21/22 21:40 Eos % (Auto) 1.5 % 02/21/22 21:40 Baso % (Auto) 0.2 % 02/21/22 21:40 Neut # (Auto) 4.03 10^3/uL (1.8-7.7) 02/21/22 21:40 Lymph # (Auto) 1.9 10^3/uL (0.8-4.8) 02/21/22 21:40 [place] # (Auto) 0.6 10^3/uL (0.2-0.9) 02/21/22 21:40 Eos # (Auto) 0.1 10^3/uL (0.0-0.8) 02/21/22 21:40 Baso # (Auto) 0.0 10^3/uL (0.0-0.1) 02/21/22 21:40 Nucleated RBC % (auto) 0 % 02/21/22 21:40 Nucleated RBCs # 0.0 /100WBC 02/21/22 21:40 ESR 2 mm/hr (0-15) 02/21/22 21:40 Sodium 141 mmol/L (136-145) 02/21/22 21:40 Potassium 3.6 mmol/L (3.5-5.1) 02/21/22 21:40 Chloride 106 mmol/L (98-107) 02/21/22 21:40 Carbon Dioxide 26 mmol/L (22-29) 02/21/22 21:40 Anion Gap 12.6 (5-19) 02/21/22 21:40 BUN 11 mg/dL (6-20) 02/21/22 21:40 Creatinine 0.6 mg/dL (0.5-0.9) 02/21/22 21:40 GFR Calculation 125.0 mL/min (90-130) 02/21/22 21:40 Glucose 91 mg/dL (65-115) 02/21/22 21:40 Calculated Osmolality 291 mOsm/kg (285-295) 02/21/22 21:40 Calcium 8.2 mg/dL (8.5-10.5) L 02/21/22 21:40 Total Bilirubin 0.2 mg/dL (0.15-1.2) 02/21/22 21:40 AST 12 U/L (0-32) 02/21/22 21:40 ALT 7 U/L (0-33) 02/21/22 21:40 Alkaline Phosphatase 85 IU/L (35-105) 02/21/22 21:40 C-Reactive Protein 3.0 mg/L (0.0-4.9) 02/21/22 21:40 Total Protein 6.5 g/dL (6.6-8.7) L 02/21/22 21:40 Albumin 4.1 g/dL (3.5-5.2) 02/21/22 21:40 Globulin 2.4 g/dL (1.3-4.6) 02/21/22 21:40 Lipase 33 U/L (13-60) 02/21/22 21:40 HCG, Qual Negative (Negative) 02/21/22 22:20 Urine Color Yellow (Yellow) 02/21/22 22:20 Urine Appearance Turbid (CLEAR) 02/21/22 22:20 Urine pH 6 (5-7) 02/21/22 22:20 Ur Specific [place] 1.020 (1.005-1.030) 02/21/22 22:20 Urine Protein Neg (Negative) 02/21/22 22:20 Urine Glucose (UA) Norm (Normal) 02/21/22 22:20 Urine Ketones Negative (Negative) 02/21/22 22:20 Urine Blood Neg (Negative) 02/21/22 22:20 Urine Nitrate Negative (Negative) 02/21/22 22:20 Urine Bilirubin Neg (Negative) 02/21/22 22:20 Urine Urobilinogen 1 mg/dL (Negative) H 02/21/22 22:20 Ur Leukocyte Esterase 1+ (Negative) H 02/21/22 22:20 Urine RBC 0-4 /hpf (0-2) H 02/21/22 22:20 Urine WBC 0-4 /hpf (0-5) H 02/21/22 22:20 Ur Squamous Epith Cells 55-80 /hpf (0-5) H 02/21/22 22:20 Amorphous Sediment Not Reportable 02/21/22 22:20 Urine Bacteria 4+ /hpf (NONE) H 02/21/22 22:20 Urine Mucus 4+ /hpf 02/21/22 22:20 Discharge Plan Discharge Patient Disposition: Home Clinical Impression: Crohn disease, BRBPR (bright red blood per rectum) Condition: Stable Prescriptions: New oxycodone 5 mg tablet 5 mg PO Q4H PRN (Reason: pain) Qty: 10 0RF No Action Gummies 400 mcg-35 mg- 25 mg-5 mg tablet,chewable 1 tab PO DAILY 0RF Humira(CF) Pen 40 mg/0.4 mL pen injector kit 40 mg SUBCUT DIRECTED 0RF Rx Instructions: EVERY 2 WEEKS prednisone 20 mg tablet 20 mg PO TID 0RF Discharge Orders: Discharge ED (Routine); Ordered 02/21/22 Ordered By: Jez Fontaine Referrals: Marie Cage MD [Primary Care Provider] - Discharge Diet: Advance as tolerated and Clear Liquid Discharge Activity: Increase activity as tolerated Patient Instructions: Rectal Bleeding (ED), Crohn Disease (ED), Abdominal Pain (ED), Opioid Safety Activity Restrictions/Additional Instructions: Thank you for visiting the emergency department. You were seen and evaluated for abdominal pain associated with blood per rectum. The exact cause of your symptoms is unclear however you will be treated for Crohn's flare. 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 Please return to the emergency department for worsening pain, fevers, or anything else that you are concerned about and feel needs emergency department evaluation. Coding Level of Care Code ED Front Desk Receptionist for Chg Fwd Exam Comprehensive
[2022-02-21 21:49] LABS: Basophils % 0.2 %; Eosinophils # 0.1 10^3/uL (0.0-0.8); Eosinophils % 1.5 %; Hematocrit 36.5 % (37.0-47.0); Hemoglobin 12.1 g/dL (11.5-15.3); Lymphocytes # 1.9 10^3/uL (0.8-4.8); Lymphocytes % 28.3 %; Mean Corpuscular HGB Conc 33.2 g/dL (30.0-36.0); Mean Corpuscular Hemoglobin 28.2 pg (28.0-34.0); Mean Corpuscular Volume 85.1 fl (81-99); Mean Platelet Volume 9.6 fL (7.4-10.4); Monocytes # 0.6 10^3/uL (0.2-0.9); Monocytes % 8.5 %; Neutrophils # 4.03 10^3/uL (1.8-7.7); Neutrophils % 61.2 %; Nucleated Red Blood Cells % 0 %; Platelet Count 298 10^3/cmm (130-400); Red Blood Count 4.29 10^6/uL (4.1-5.3); Red Cell Distribution Width 12.9 % (12.1-15.1); White Blood Count 6.6 10^3/uL (4.0-10.0)
[2022-02-21 22:05] LABS: Alanine Aminotransferase 7 U/L (0-33); Albumin Level 4.1 g/dL (3.5-5.2); Alkaline Phosphatase 85 IU/L (35-105); Anion Gap 12.6 (5-19); Aspartate Amino Transferase 12 U/L (0-32); Blood Urea Nitrogen 11 mg/dL (6-20); Calcium 8.2 mg/dL (8.5-10.5); Carbon Dioxide 26 mmol/L (22-29); Chloride 106 mmol/L (98-107); Creatinine Clr Calc Pharmacy 125.6527; Globulin 2.4 g/dL (1.3-4.6); Glucose 91 mg/dL (65-115); Lipase 33 U/L (13-60); Osmolality Calculated 291 mOsm/kg (285-295); Potassium 3.6 mmol/L (3.5-5.1); Sodium 141 mmol/L (136-145); Total Bilirubin 0.2 mg/dL (0.15-1.2); Total Protein 6.5 g/dL (6.6-8.7)
[2022-02-21 22:11] LABS: Erythrocyte Sedimentation Rate 2 mm/hr (0-15)
[2022-02-21 22:30] LABS: HCG Qualitative Urine. Negative (Negative)
[2022-02-21 22:45] LABS: Add Urine Microscopic? YES; Bilirubin Urine Neg (Negative); Blood Urine Neg (Negative); Glucose Urine UA Norm (Normal); Ketones Urine Negative (Negative); Leukocyte Esterase Urine 1+ (Negative); Nitrate Urine Negative (Negative); Protein Urine Neg (Negative); Urine Appearance Turbid (CLEAR); Urine Color Yellow (Yellow); Urobilinogen Urine 1 mg/dL (Negative); pH Urine 6 (5-7)
[2022-02-21 22:48] LABS: Add Urine Culture? No; Bacteria Urine 4+ /hpf; Mucus Urine 4+ /hpf; RBC Urine 0-4 /hpf (0-2); Squamous Epithelial Cell Urine 55-80 /hpf (0-5); WBC Urine 0-4 /hpf (0-5)
[2022-02-21 23:11] VITALS: BP 122/82; PULSE 87; RESP 16; O2SAT 97
== END 2022-02-21 23:12 | disposition home or self-care (01) ==
PROVIDERS: Emergency Provider Emergency Medicine; PCP Family Medicine
DX: K50.90 Crohn's disease, unspecified, without complications (principal)
CPT/HCPCS: 80053; 81001; 81025; 83690; 85025; 85651; 86140; 99282

== ENCOUNTER 2022-02-25 15:38 | Emergency (ER) | payer MEDICAID, SELFPAY ==
[2022-02-25 15:49] VITALS: BP 133/86; PULSE 87; RESP 16; TEMP 36.8; O2SAT 96; BMI 21.4
--- NOTE | 2022-02-25 16:12 | W.ED.FALL ---
HPI - Fall General: Chief Complaint: Fall Stated Complaint: fall / head injury Time Seen by Provider: 02/25/22 15:56 History of Present Illness: Patient is a 22-year-old female comes to the ED headache after fall. Patient says that yesterday she tripped over a baby gate that goes into her dining room. When she fell her head hit the wooden table. Denies any loss of consciousness. Patient has had 8 out of 10 headache today. She also endorses having some nausea and was sleeping today as well. Patient had to miss work today due to headache and she needs a note from provider clearing her to go back to work, so she came here to get evaluated.. She took some ibuprofen last night to help with headache but has not taken anything today. Denies any neurological symptoms, such as vision changes, numbness tingling 1 side of her body or face or any weakness to 1 side of her body. Associated symptoms-after fall: Reports headache(s); Denies abdominal pain, chest pain, hematuria or neck pain Review of Systems Const: Denies: fever(s), chills or fatigue Eyes: Denies: change in vision or eye discomfort ENMT: Denies: throat pain, odynophagia, nasal discharge or nasal congestion Card: Denies: chest pain, palpitations, edema, swelling of feet/ankles, dyspnea on exertion or orthopnea Resp: Denies: dyspnea, productive cough or non-productive cough GI: Reports: nausea; Denies: abdominal pain, vomiting, diarrhea, constipation or hematochezia : Denies: flank pain, dysuria or hematuria Musc: Denies: neck pain, back pain or extremity swelling Skin/Breast: Denies: rash or new lesions Neuro: Reports: headache(s); Denies: numbness in extremities or weakness in extremities PFS ED PFSH: Medical History Crohn disease No pertinent past medical history neghx: htn,dm,thyroid,dvt/pe PCP: none Psychiatric care Surgical History History of tonsillectomy and adenoidectomy (~2006) Hx of wisdom tooth extraction (~2016) Family History Family/Other Colon cancer Paternal Great Uncle--dx age 43 Thyroid disease Maternal side in general Grandmother Diabetes Maternal Heart disease Maternal Hypertension Maternal Grandfather Heart disease Paternal Denies family history of Ovarian cancer Hypercholesteremia Breast cancer Uterine cancer Stroke Female Reproductive History: Date of last menstrual period: 12/14/20 Physical Exam Const: COMMON NORMALS: no acute distress, patient oriented x3 and healthy appearing GENERAL APPEARANCE: cooperative and comfortable HENMT: COMMON NORMALS: normocephalic HEAD & SCALP: normal to inspection and normocephalic; no Kingsley's sign and no raccoon eyes MOUTH: Normal oral and palatal mucosa present THROAT: posterior oropharynx normal and uvula midline Eye: COMMON NORMALS: Equal, round and reactive pupils present, EOMs intact bilaterally and conjunctivae normal CONJUNCTIVA: Yes conjunctivae normal PUPIL: Yes Equal, round and reactive pupils present Neck/C-Spine: COMMON NORMALS: supple GENERAL: Yes normal visual inspection Resp: COMMON NORMALS: normal respiratory effort, No retractions, No use of accessory muscles and clear to auscultation bilaterally AUSCULTATION: clear to auscultation bilaterally Cardio: COMMON NORMALS: regular rate, regular rhythm, S1 normal heart sound present, S2 normal heart sound present, No gallops present (Cardio), No clicks present (Cardio), No murmurs present (Cardio) and Peripheral pulses 2+ throughout RATE: regular rate RHYTHM: regular rhythm HEART SOUNDS: S1 normal heart sound present and S2 normal heart sound present PERIPHERAL PULSES: Peripheral pulses 2+ throughout GI: COMMON NORMALS: Normal to inspection, nondistended, normoactive bowel sounds present, Soft to palpation, non-tender and no masses PALPATION: Yes Soft to palpation : COMMON NORMALS: Yes no CVA tenderness BLADDER/KIDNEY EXAM: Yes no CVA tenderness Back/Pelvis: COMMON NORMALS: no CVA tenderness Extremity: COMMON NORMALS: normal to inspection Neuro: COMMON NORMALS: patient oriented x3, CN's II-XII intact bilaterally, moves all extremities, no focal motor deficits and no sensory deficits noted SPEECH: speech normal GAIT: Yes Normal gait present SENSORY EXAM: Yes extremities (intact) MOTOR EXAM: 5/5 motor strength present throughout Skin: GENERAL SKIN EXAM: dry skin Course Vital Signs: Vital signs: Vital Signs Temperature 98.3 F 02/25/22 15:49 Pulse Rate 87 02/25/22 15:49 Respiratory Rate 16 02/25/22 15:49 Blood Pressure 133/86 02/25/22 15:49 Pulse Oximetry 96 02/25/22 15:49 MDM - Fall Medical Decision Making Patient is a 22-year-old female comes to the ED with a headache after having a fall yesterday. Patient says she tripped over a baby gate in her house and her head hit wooden table. Denies any loss of consciousness. She has had some nausea and headache since injury. She missed work today and came here to the ED because she needed a note from a provider clearing her to work tomorrow. Vitals are stable. Patient appears nontoxic and in no acute distress or pain. Her neuro exam is normal. No visible injury seen on head. Due to patient's clinical appearance she likely has possible mild concussion but no need for any head CT imaging at this time. She was given dose of IM Toradol here in the ED and her headache did improve. She was stable for discharge home and diagnosed with a minor head injury and told to follow-up with her PCP in the next week for reevaluation. Return to ED precautions given. Patient is to agree with plan. Discharge Plan Discharge Patient Disposition: Home Clinical Impression: Minor head injury without loss of consciousness Condition: Stable Prescriptions: No Action Gummies 400 mcg-35 mg- 25 mg-5 mg tablet,chewable 1 tab PO DAILY 0RF Humira(CF) Pen 40 mg/0.4 mL pen injector kit 40 mg SUBCUT DIRECTED 0RF Rx Instructions: EVERY 2 WEEKS prednisone 20 mg tablet 20 mg PO TID 0RF prednisone 50 mg tablet 50 mg PO DAILY 5 Days Qty: 5 0RF oxycodone 5 mg tablet 5 mg PO Q4H PRN (Reason: pain) Qty: 10 0RF Discharge Orders: Discharge ED (Routine); Ordered 02/25/22 Ordered By: Francis Barth Referrals: Marie Cage MD [Primary Care Provider] - Discharge Diet: Regular Discharge Activity: Increase activity as tolerated Patient Instructions: Head Injury (DC) Activity Restrictions/Additional Instructions: Follow-up with medical provider as directed in the next 7 to 10 days for reevaluation. Take [id number] Tylenol or Motrin for any headaches. Return to the ER or your medical provider if condition worsens. Please read and understand discharge instructions. Thank you for choosing [facility] for your healthcare needs today. Please realize this is an emergency room and that we are providing you with a medical screening exam and this may not be complete and all inclusive of all the testing and or work up that you may need to determine your ailment or severity of your illness. It is very important that you follow up as instructed or that you return to the Emergency Department should you have concerns or if your condition changes or worsens in any way. 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
[2022-02-25] MEDS: ketorolac 60 mg/2 mL INJ IM (16:23)
== END 2022-02-25 17:26 | disposition home or self-care (01) ==
PROVIDERS: Emergency Provider Physician Assistant; PCP Family Medicine
DX: S09.90XA Unspecified injury of head, initial encounter (principal); W01.190A Fall on same level from slipping, tripping and stumbling with subsequent striking against furniture, initial encounter
CPT/HCPCS: 96372; 99283; J1885

== ENCOUNTER → 2022-03-22 12:09 | Outpatient (BNVA) | payer MEDICAID, SELFPAY | PROVIDERS: PCP Family Medicine; Visit Provider Counselor Professional | DX: F41.1 Generalized anxiety disorder (principal); F33.9 Major depressive disorder, recurrent, unspecified | CPT/HCPCS: 90837; 90834 ==

== ENCOUNTER 2022-03-25 18:36 | Emergency (ER) | payer MEDICAID, SELFPAY ==
[2022-03-25 18:38] VITALS: BP 123/75; PULSE 93; RESP 18; TEMP 36.7; O2SAT 98
--- NOTE | 2022-03-25 21:21 | ED_ITS ---
HPI - Abdominal Pain General: Chief Complaint: Abdominal Pain Stated Complaint: abd pains Time Seen by Provider: 03/25/22 21:19 History of Present Illness: 22-year-old female comes in today with abdominal discomfort. Patient reports that she has a history of Crohn's disease but does not take any medications at this time. Patient appears nontoxic. Patient does report liquidy stools but that is not abnormal for her. Patient reports that she started her menstrual cycle on the 13 but has had increased bleeding over the last 2 days. Patient came to the ER today due to increased abdominal discomfort but since being in the ER waiting area she had increased vaginal bleeding and some improvement in her pain. Patient appears in mild to no pain at this time. Associated Symptoms: Reports diarrhea; Denies fever(s) and vomiting Related Data: Date of Last Menstrual Period: 03/18/22 Review of Systems General: Reports: 10 or more systems reviewed and unremarkable except in HPI and below Const: Denies: fever(s) Card: Denies: chest pain Resp: Denies: dyspnea GI: Reports: abdominal pain and diarrhea; Denies: vomiting : Reports: vaginal bleeding; Denies: difficulty voiding Musc: Denies: neck pain Skin/Breast: Denies: rash PFSH ED PFSH: Medical History Crohn disease No pertinent past medical history neghx: htn,dm,thyroid,dvt/pe PCP: none Psychiatric care Surgical History History of tonsillectomy and adenoidectomy (~2006) Hx of wisdom tooth extraction (~2017) Family History Family/Other Colon cancer Paternal Great Uncle--dx age 43 Thyroid disease Maternal side in general Grandmother Diabetes Maternal Heart disease Maternal Hypertension Maternal Grandfather Heart disease Paternal Denies family history of Ovarian cancer Hypercholesteremia Breast cancer Uterine cancer Stroke Female Reproductive History: Date of last menstrual period: 03/18/22 Physical Exam Const: COMMON NORMALS: alert Neck/C-Spine: COMMON NORMALS: full ROM Resp: COMMON NORMALS: normal respiratory effort Cardio: COMMON NORMALS: regular rate RATE: regular rate GI: COMMON NORMALS: Soft to palpation PALPATION: Yes Soft to palpation, Yes Tenderness to palpation present (GI) (Mild generalized tenderness), No Guarding due to palpation present (GI) and No Rebound tenderness present : COMMON NORMALS: Yes no CVA tenderness BLADDER/KIDNEY EXAM: Yes no CVA tenderness Back/Pelvis: COMMON NORMALS: no CVA tenderness Extremity: COMMON NORMALS: normal to inspection Neuro: SENSORIUM/ORIENTATION: Yes alert Skin: COMMON NORMALS: no rashes or lesions noted GENERAL SKIN EXAM: no rashes or lesions noted Course Vital Signs: Vital signs: Vital Signs Temperature 98.1 F 03/25/22 18:38 Pulse Rate 93 03/25/22 18:38 Respiratory Rate 18 03/25/22 18:38 Blood Pressure 123/75 03/25/22 18:38 Pulse Oximetry 98 03/25/22 18:38 MDM - Abdominal Pain Medical Decision Making 23-year-old female comes in today with complaints of abdominal pain. Patient also reports irregularity in her periods. Patient started having some light bleeding on the then started having heavier bleeding yesterday and today. Patient was to start her period yesterday. On exam abdomen soft with some hyperactive bowel sounds. Skin is warm and dry. Differential diagnosis includes but not limited to irritable bowel syndrome, Crohn's disease flare, spontaneous miscarriage, irregular menstrual cycle. Laboratory values were unremarkable. Urinalysis had a large amount of blood without any signs of significant white blood cell count. KUB showed large amount of gas in the colon most likely due to her Crohn's disease. We will treat for Crohn's flare for the abdominal pain. Patient be started on a prednisone taper for the next 14 days. Patient was written for a few hydrocodone for severe pain. Patient was agreeable to plan and understands the need for follow-up and for chronic management for her Crohn's disease. Lab Data : 03/25/22 21:52 03/25/22 21:52 Labs/Radiology: Radiology Impressions KUB X-Ray 03/25/22 21:31 IMPRESSION: Mildly prominent air within the colon proximal to the mid descending colon, with possible retained feces in the rectosigmoid colon. Laboratory Results WBC 10.9 10^3/uL (4.0-10.0) H 03/25/22 21:52 RBC 4.82 10^6/uL (4.1-5.3) 03/25/22 21:52 Hgb 13.8 g/dL (11.5-15.3) 03/25/22 21:52 Hct 41.8 % (37.0-47.0) 03/25/22 21:52 MCV 86.7 fl (81-99) 03/25/22 21:52 MCH 28.6 pg (28.0-34.0) 03/25/22 21:52 MCHC 33.0 g/dL (30.0-36.0) 03/25/22 21:52 RDW 13.2 % (12.1-15.1) 03/25/22 21:52 Plt Count 339 10^3/cmm (130-400) 03/25/22 21:52 MPV 9.2 fL (7.4-10.4) 03/25/22 21:52 Neut % (Auto) 76.5 % 03/25/22 21:52 Lymph % (Auto) 14.3 % 03/25/22 21:52 [place] % (Auto) 7.7 % 03/25/22 21:52 Eos % (Auto) 0.9 % 03/25/22 21:52 Baso % (Auto) 0.2 % 03/25/22 21:52 Neut # (Auto) 8.38 10^3/uL (1.8-7.7) H 03/25/22 21:52 Lymph # (Auto) 1.6 10^3/uL (0.8-4.8) 03/25/22 21:52 [place] # (Auto) 0.8 10^3/uL (0.2-0.9) 03/25/22 21:52 Eos # (Auto) 0.1 10^3/uL (0.0-0.8) 03/25/22 21:52 Baso # (Auto) 0.0 10^3/uL (0.0-0.1) 03/25/22 21:52 Nucleated RBC % (auto) 0 % 03/25/22 21:52 Nucleated RBCs # 0.0 /100WBC 03/25/22 21:52 Sodium 140 mmol/L (136-145) 03/25/22 21:52 Potassium 3.6 mmol/L (3.5-5.1) 03/25/22 21:52 Chloride 104 mmol/L (98-107) 03/25/22 21:52 Carbon Dioxide 27 mmol/L (22-29) 03/25/22 21:52 Anion Gap 12.6 (5-19) 03/25/22 21:52 BUN 10 mg/dL (6-20) 03/25/22 21:52 Creatinine 0.5 mg/dL (0.5-0.9) 03/25/22 21:52 GFR Calculation 154.3 mL/min (90-130) H 03/25/22 21:52 Glucose 102 mg/dL (65-115) 03/25/22 21:52 Calculated Osmolality 289 mOsm/kg (285-295) 03/25/22 21:52 Calcium 8.3 mg/dL (8.5-10.5) L 03/25/22 21:52 Total Bilirubin 0.4 mg/dL (0.15-1.2) 03/25/22 21:52 AST 14 U/L (0-32) 03/25/22 21:52 ALT 16 U/L (0-33) 03/25/22 21:52 Alkaline Phosphatase 107 IU/L (35-105) H 03/25/22 21:52 Total Protein 7.2 g/dL (6.6-8.7) 03/25/22 21:52 Albumin 4.3 g/dL (3.5-5.2) 03/25/22 21:52 Globulin 2.9 g/dL (1.3-4.6) 03/25/22 21:52 Lipase 26 U/L (13-60) 03/25/22 21:52 HCG, Qual Negative (Negative) 03/25/22 21:52 Urine Color Dark yellow (Yellow) 03/25/22 21:52 Urine Appearance Cloudy (CLEAR) 03/25/22 21:52 Urine pH 5 (5-7) 03/25/22 21:52 Ur Specific [place] 1.025 (1.005-1.030) 03/25/22 21:52 Urine Protein 1+ (Negative) H 03/25/22 21:52 Urine Glucose (UA) Norm (Normal) 03/25/22 21:52 Urine Ketones Negative (Negative) 03/25/22 21:52 Urine Blood 3+ (Negative) H 03/25/22 21:52 Urine Nitrate Negative (Negative) 03/25/22 21:52 Urine Bilirubin 1+ (Negative) H 03/25/22 21:52 Urine Urobilinogen 1 mg/dL (Negative) H 03/25/22 21:52 Ur Leukocyte Esterase Trace (Negative) H 03/25/22 21:52 Urine RBC >100 /hpf (0-2) H 03/25/22 21:52 Urine WBC 25-40 /hpf (0-5) H 03/25/22 21:52 Ur Squamous Epith Cells 25-40 /hpf (0-5) H 03/25/22 21:52 Amorphous Sediment Not Reportable 03/25/22 21:52 Urine Bacteria 1+ /hpf (NONE) H 03/25/22 21:52 Urine Mucus 2+ /hpf 03/25/22 21:52 Discharge Plan Discharge Patient Disposition: Home Clinical Impression: Abdominal pain, Irregular periods/menstrual cycles Crohn disease Qualifiers: Gastrointestinal tract location: unspecified location Digestive disease compl ication type: without complication Qualified Code(s): K50.90 - Crohn's disease, unspecified, without complications Condition: Stable Prescriptions: New hydrocodone-acetaminophen 5-325 mg tablet 1 tab PO Q8H PRN (Reason: pain (scale score 7-10)) Qty: 6 0RF prednisone 20 mg tablet See Rx Instructions .ROUTE .COMPLEX Qty: 18 0RF Rx Instructions: prednisone 20 mg: take 2 tablets (40 mg) on Days 1-5; 1 tablets (20 mg) on Day 6-10; then decrease by 1/2 tablet every day until finished Discontinued Humira(CF) Pen 40 mg/0.4 mL pen injector kit 40 mg SUBCUT DIRECTED 0RF Rx Instructions: EVERY 2 WEEKS prednisone 20 mg tablet 20 mg PO TID 0RF oxycodone 5 mg tablet 5 mg PO Q4H PRN (Reason: pain) Qty: 10 0RF No Action Gummies 400 mcg-35 mg- 25 mg-5 mg tablet,chewable 1 tab PO DAILY 0RF Discharge Orders: Discharge ED (Routine); Ordered 03/25/22 Ordered By: Leonel Alexander Referrals: Marie Cage MD [Primary Care Provider] - Discharge Diet: Usual diet Discharge Activity: Increase activity as tolerated Patient Instructions: Abdominal Pain (ED), Opioid Safety Activity Restrictions/Additional Instructions: Continue with routine care. Take prednisone as directed for the next 14 days. Drink plenty of water with medications. Use hydrocodone for severe pain. Follow-up with primary care for further instruction. Return to ER for new concerns such as high fever greater than 100.4 or worsening abdominal pain. 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
--- NOTE | 2022-03-25 21:31 | XRR_ITS ---
PROCEDURE INFORMATION: Exam: XR Abdomen Exam date and time: 03/25/2022 9:38 PM Age: 22 years old Clinical indication: Abdominal pain; Generalized; Patient HX: C/O diffuse abd pain with cramping/bloating. History of crohn's disease. ; Additional info: Abd discomfort, R/O obstruction TECHNIQUE: Imaging protocol: XR of the abdomen. Views: Frontal supine view of the abdomen. 1 View. COMPARISON: CR Abdomen 2 views [id number] 09/15/2017 1:33 PM FINDINGS: Gastrointestinal tract: Mildly prominent air within the colon proximal to the mid descending colon, with possible retained feces in the rectosigmoid colon. Bones/joints: Unremarkable. XR/XR KUB [id number] IMPRESSION: Mildly prominent air within the colon proximal to the mid descending colon, with possible retained feces in the rectosigmoid colon.
[2022-03-25 21:59] LABS: Basophils % 0.2 %; Eosinophils # 0.1 10^3/uL (0.0-0.8); Eosinophils % 0.9 %; Hematocrit 41.8 % (37.0-47.0); Hemoglobin 13.8 g/dL (11.5-15.3); Lymphocytes # 1.6 10^3/uL (0.8-4.8); Lymphocytes % 14.3 %; Mean Corpuscular Hemoglobin 28.6 pg (28.0-34.0); Mean Corpuscular Volume 86.7 fl (81-99); Mean Platelet Volume 9.2 fL (7.4-10.4); Monocytes # 0.8 10^3/uL (0.2-0.9); Monocytes % 7.7 %; Neutrophils # 8.38 10^3/uL (1.8-7.7); Neutrophils % 76.5 %; Nucleated Red Blood Cells % 0 %; Platelet Count 339 10^3/cmm (130-400); Red Blood Count 4.82 10^6/uL (4.1-5.3); Red Cell Distribution Width 13.2 % (12.1-15.1); White Blood Count 10.9 10^3/uL (4.0-10.0)
[2022-03-25 22:04] LABS: HCG Qualitative Urine. Negative (Negative)
[2022-03-25 22:10] LABS: Add Urine Microscopic? YES; Bilirubin Urine 1+ (Negative); Blood Urine 3+ (Negative); Glucose Urine UA Norm (Normal); Ketones Urine Negative (Negative); Leukocyte Esterase Urine Trace (Negative); Nitrate Urine Negative (Negative); Protein Urine 1+ (Negative); RBC Urine >100 /hpf (0-2); Specific Gravity, Urine 1.025 (1.005-1.030); Squamous Epithelial Cell Urine 25-40 /hpf (0-5); Urine Appearance Cloudy (CLEAR); Urine Color Dark Yellow (Yellow); Urobilinogen Urine 1 mg/dL (Negative); WBC Urine 25-40 /hpf (0-5); pH Urine 5 (5-7)
[2022-03-25 22:11] LABS: Add Urine Culture? No; Bacteria Urine 1+ /hpf; Mucus Urine 2+ /hpf
[2022-03-25 22:15] LABS: Alanine Aminotransferase 16 U/L (0-33); Albumin Level 4.3 g/dL (3.5-5.2); Alkaline Phosphatase 107 IU/L (35-105); Anion Gap 12.6 (5-19); Aspartate Amino Transferase 14 U/L (0-32); Blood Urea Nitrogen 10 mg/dL (6-20); Calcium 8.3 mg/dL (8.5-10.5); Carbon Dioxide 27 mmol/L (22-29); Chloride 104 mmol/L (98-107); Creatinine Clr Calc Pharmacy 149.2665; Globulin 2.9 g/dL (1.3-4.6); Glomerular Filtration Rate 154.3 mL/min (90-130); Glucose 102 mg/dL (65-115); Lipase 26 U/L (13-60); Osmolality Calculated 289 mOsm/kg (285-295); Potassium 3.6 mmol/L (3.5-5.1); Sodium 140 mmol/L (136-145); Total Bilirubin 0.4 mg/dL (0.15-1.2); Total Protein 7.2 g/dL (6.6-8.7)
[2022-03-25] MEDS: predniSONE 20 mg Tablet 40 MG PO (23:20)
[2022-03-25 23:25] VITALS: BP 121/71; PULSE 89; RESP 18; TEMP 36.7; O2SAT 98
== END 2022-03-25 23:27 | disposition home or self-care (01) ==
PROVIDERS: Emergency Medicine; Emergency Provider Nurse Practitioner Family; PCP Family Medicine
DX: K50.90 Crohn's disease, unspecified, without complications (principal)
CPT/HCPCS: 74018; 80053; 81001; 81025; 83690; 85025; 99283; J7512

== ENCOUNTER 2024-02-01 15:33 | Emergency (ER) | payer MEDICAID, SELFPAY ==
[2024-02-01 15:38] VITALS: BP 119/73; PULSE 90; RESP 16; TEMP 36.8; O2SAT 97
--- NOTE | 2024-02-01 16:08 | CTR_ITS ---
PROCEDURE INFORMATION: Exam: CT Abdomen And Pelvis With Contrast Exam date and time: 02/01/2024 5:02 PM Age: 24 years old Clinical indication: Nausea and vomiting; Abdominal pain; Other: Epigastric & llq pain; Patient HX: HX crohns; Additional info: Abd pain TECHNIQUE: Imaging protocol: Computed tomography of the abdomen and pelvis with contrast. Radiation optimization: All CT scans at this facility use at least one of these dose optimization techniques: automated exposure control; mA and/or kV adjustment per patient size (includes targeted exams where dose is matched to clinical indication); or iterative reconstruction. Contrast material: OMNI 350; Contrast volume: 100 ml; Contrast route: INTRAVENOUS (IV); COMPARISON: CR XR KUB [id number] 03/25/2022 9:38 PM RADIATION DOSE METRICS: Total DLP (mGy-cm): 382.65 FINDINGS: Liver: Normal. No mass. Gallbladder and bile ducts: Normal. No calcified stones. No ductal dilation. Pancreas: Normal. No ductal dilation. Spleen: Normal. No splenomegaly. Adrenal glands: Normal. No mass. Kidneys and ureters: Normal. No hydronephrosis. Stomach and bowel: Wall thickening and mucosal hyperenhancement of several loops of bowel in the lower abdomen/ilium and terminal ileum. There is also wall thickening of the rectum. Appendix: No evidence of appendicitis. Intraperitoneal space: Trace pelvic free fluid. No free air. No significant fluid collection. Vasculature: Unremarkable. No abdominal aortic aneurysm. Lymph nodes: Unremarkable. No enlarged lymph nodes. Urinary bladder: Unremarkable as visualized. Reproductive: Unremarkable as visualized. Bones/joints: No acute fracture. Soft tissues: Unremarkable. CT/CT abdomen pelvis w con* [id number] IMPRESSION: Inflammatory changes of the ileum/terminal ileum and rectum consistent with ileitis and proctitis.
--- NOTE | 2024-02-01 16:10 | ED_ITS ---
HPI - Abdominal Pain 2 General: Chief Complaint: Abdominal Pain Stated Complaint: abd pain Time Seen by Provider: 02/01/24 15:58 Source: patient Mode of arrival: ambulatory Limitations: no limitations History of Present Illness: 24-year-old female states she has a hist ory of Crohn's disease states the last 2 to 3 days she has been having diffuse abdominal cramping states she has had vomiting and having a hard time tolerating p.o. She denies any diarrhea or constipation states pain is currently a 2 out of 10 no history of abdominal surgeries. Denies any fevers. Denies any vaginal discharge. Associated Symptoms: Reports nausea and vomiting; Denies chills, diarrhea, dysuria and fever(s) Related Data: Date of Last Menstrual Period: 12/31/23 Review of Systems 2 Const: Denies: fever(s), chills, body aches or change in appetite ENMT: Denies: throat pain or dental pain Card: Denies: chest pain Resp: Denies: dyspnea GI: Reports: abdominal pain, nausea and vomiting; Denies: diarrhea : Denies: dysuria Musc: Denies: neck pain or back pain Skin/Breast: Denies: rash Neuro: Denies: headache(s) PFSH ED 2 PFSH: Medical History Crohn disease No pertinent past medical history neghx: htn,dm,thyroid,dvt/pe PCP: none Surgical History History of tonsillectomy and adenoidectomy (~2006) Hx of wisdom tooth extraction (~2017) Family History Family/Other Colon cancer Paternal Great Uncle--dx age 43 Thyroid disease Maternal side in general Grandmother Diabetes Maternal Heart disease Maternal Hypertension Maternal Grandfather Heart disease Paternal Denies family history of Ovarian cancer Hypercholesteremia Breast cancer Uterine cancer Stroke Female Reproductive History: Date of last menstrual period: 12/31/23 Physical Exam 2 Const: COMMON NORMALS: no acute distress, patient oriented x3 and healthy appearing HENMT: COMMON NORMALS: normocephalic and atraumatic HEAD & SCALP: n ormocephalic and atraumatic Neck/C-Spine: COMMON NORMALS: full ROM and supple Chest: COMMONS NORMALS: normal inspection of the chest and normal palpation of entire chest wall Resp: COMMON NORMALS: normal respiratory effort, No retractions, No use of accessory muscles and clear to auscultation bilaterally AUSCULTATION: clear to auscultation bilaterally Cardio: COMMON NORMALS: regular rate, regular rhythm and No murmurs present (Cardio) RATE: regular rate RHYTHM: regular rhythm GI: COMMON NORMALS: Normal to inspection, nondistended, normoactive bowel sounds present, Soft to palpation, non-tender and no masses PALPATION: Yes Soft to palpation Extremity: COMMON NORMALS: normal to inspection and full ROM Neuro: COMMON NORMALS: patient oriented x3, moves all extremities and no focal motor deficits Psych: COMMON NORMALS: mental status grossly normal, Normal thought process present and cooperative THOUGHT PROCESS: Normal thought process present Skin: COMMON NORMALS: no rashes or lesions noted and no wounds GENERAL SKIN EXAM: no rashes or lesions noted Course 2 Vital Signs: Vital signs: Vital Signs Temperature 98.2 F 02/01/24 15:38 Pulse Rate 73 02/01/24 17:30 Respiratory Rate 16 02/01/24 16:11 Blood Pressure 120/72 02/01/24 17:30 Pulse Oximetry 96 02/01/24 17:30 Oxygen Delivery Me thod Room Air 02/01/24 16:11 MDM - Abdominal Pain Medical Decision Making Patient presents here with abdominal pain history of Crohn's she also has some vomiting her abdominal exam here is benign blood works normal CT showed a ileitis we will place her on a steroid burst along with Augmentin she is to follow-up with her GI physician we will place her on Zofran as well she understands agrees to plan. Lab Data I reviewed the patient's lab results. 02/01/24 16:10 02/01/24 16:10 Labs/Radiology: Radiology Impressions Abdomen/Pelvis CT 02/01/24 16:08 IMPRESSION: Inflammatory changes of the ileum/terminal ileum and rectum consistent with ileitis and proctitis. Laboratory Results WBC 7.95 10^3/uL (3.29-11.43) 02/01/24 16:10 RBC 4.04 10^6/uL (3.85-5.65) 02/01/24 16:10 Hgb 10.20 g/dL (11.27-16.99) L 02/01/24 16:10 Hct 31.9 % (36-47) L 02/01/24 16:10 MCV 79.0 fl (85-98) L 02/01/24 16:10 MCH 25.2 pg (27-33) L 02/01/24 16:10 MCHC 32.0 g/dL (30-55) 02/01/24 16:10 RDW 15.1 % (12.1-15.1) 02/01/24 16:10 Plt Count 359 10^3/cmm (157-399) 02/01/24 16:10 MPV 9.5 fL (7.4-10.4) 02/01/24 16:10 Neut % (Auto) 71.0 % 02/01/24 16:10 Lymph % (Auto) 19.6 % 02/01/24 16:10 [place] % (Auto) 7.3 % 02/01/24 16:10 Eos % (Auto) 1.5 % 02/01/24 16:10 Baso % (Auto) 0.3 % 02/01/24 16:10 Neut # (Auto) 5.65 10^3/uL (1.8-7.7) 02/01/24 16:10 Lymph # (Auto) 1.6 10^3/uL (0.8-4.8) 02/01/24 16:10 [place] # (Auto) 0.6 10^3/uL (0.2-0.9) 02/01/24 16:10 Eos # (Auto) 0.1 10^3/uL (0.0-0.8) 02/01/24 16:10 Baso # (Auto) 0.0 10^3/uL (0.0-0.1) 02/01/24 16:10 Nucleated RBC % (auto) 0 % 02/01/24 16:10 Nucleated RBCs # 0.0 /100WBC 02/01/24 16:10 Sodium 140 mmol/L (136-145) 02/01/24 16:10 Potassium 3.5 mmol/L (3.5-5.1) 02/01/24 16:10 Chloride 104 mmol/L (98-107) 02/01/24 16:10 Carbon Dioxide 26 mmol/L (22-29) 02/01/24 16:10 Anion Gap 13.5 (5-19) 02/01/24 16:10 BUN 11 mg/dL (6-20) 02/01/24 16:10 Creatinine 0.5 mg/dL (0.5-0.9) 02/01/24 16:10 GFR Calculation 151.6 mL/min (90-130) H 02/01/24 16:10 Glucose 112 mg/dL (65-115) 02/01/24 16:10 Calculated Osmolality 290 mOsm/kg (285-295) 02/01/24 16:10 Calcium 8.6 mg/dL (8.5-10.5) 02/01/24 16:10 Total Bilirubin 0.2 mg/dL (0.15-1.2) 02/01/24 16:10 AST 12 U/L (0-32) 02/01/24 16:10 ALT 20 U/L (0-33) 02/01/24 16:10 Alkaline Phosphatase 116 U/L (35-105) H 02/01/24 16:10 Total Protein 6.8 g/dL (6.6-8.7) 02/01/24 16:10 Albumin 3.5 g/dL (3.5-5.2) 02/01/24 16:10 Globulin 3.3 g/dL (1.3-4.6) 02/01/24 16:10 Lipase 34 U/L (13-60) 02/01/24 16:10 HCG, Qual Negative (Negative) 02/01/24 16:10 Urine Color Yellow (Yellow) 02/01/24 16:10 Urine Appearance Cloudy (CLEAR) A 02/01/24 16:10 Ur Specific [place] 1.006 (1.005-1.030) 02/01/24 16:10 Urine Protein 1+ (Negative) H 02/01/24 16:10 Urine Glucose (UA) Norm (Normal) 02/01/24 16:10 Urine Ketones Negative (Negative) 02/01/24 16:10 Urine Blood Neg (Negative) 02/01/24 16:10 Urine Nitrate Negative (Negative) 02/01/24 16:10 Urine Bilirubin 1+ (Negative) H 02/01/24 16:10 Urine Urobilinogen Norm mg/dL (Negative) 02/01/24 16:10 Ur Leukocyte Esterase Negative (Negative) 02/01/24 16:10 Urine RBC 0-4 /hpf (0-2) H 02/01/24 16:10 Urine WBC 15-25 /hpf (0-5) H 02/01/24 16:10 Ur Squamous Epith Cells 10-15 /hpf (0-5) H 02/01/24 16:10 Amorphous Sediment Not Reportable 02/01/24 16:10 Urine Bacteria 2+ /hpf (NONE) H 02/01/24 16:10 Urine Mucus 3+ /hpf 02/01/24 16:10 All radiology interpretation(s) finalized by discharge Discharge Plan Discharge Patient Disposition: Home Clinical Impression: Crohn disease Qualifiers: Gastrointestinal tract location: unspecified location Digestive disease complication type: without complication Qualified Code(s): K50.90 - Crohn's disease, unspecified, without complications Abdominal pain Qualifiers: Abdominal location: generalized Qualified Code(s): R10.84 - Generalized abdominal pain Condition: Stable Prescriptions: New ondansetron 4 mg tablet,disintegrating 4 mg PO Q6H PRN (Reason: nausea and vomiting) Qty: 14 0RF prednisone 50 mg tablet 50 mg PO DAILY Qty: 5 0RF Augmentin 500-125 mg tablet 1 tab PO BID Qty: 14 0RF No Action Gummies 400 mcg-35 mg- 25 mg-5 mg tablet,chewable 1 tab PO DAILY hydrocodone-acetaminophen 5-325 mg tablet 1 tab PO Q8H PRN (Reason: pain (scale score 7-10)) Qty: 6 0RF prednisone 20 mg tablet See Rx Instructions .ROUTE .COMPLEX Qty: 18 0RF Rx Instructions: prednisone 20 mg: take 2 tablets (40 mg) on Days 1-5; 1 tablets (20 mg) on Day 6-10; then decrease by 1/2 tablet every day until finished Discharge Orders: Discharge ED (Routine); Ordered 02/01/24 Ordered By: Katelyn Hernandez Referrals: ALICIA ESPARZA, RELIGIOUS LEADER-C [Primary Care Provider] - Discharge Diet: Advance as tolerated Discharge Activity: Resume usual activity Patient Instructions: Crohn Disease (ED), Abdominal Pain (ED) Coding Level of Care Code ED Wireless Sales Expert for Maeve Hooper
[2024-02-01 16:11] VITALS: BP 131/78; PULSE 70; RESP 16; O2SAT 100
[2024-02-01] MEDS: ondansetron 2 mg/ML SDV 2 mL 4 MG IVP (16:17)
[2024-02-01] MEDS: pantoprazole 40 mg SDV 80 MG IVP (16:18)
[2024-02-01 16:27] LABS: Basophils % 0.3 %; Eosinophils # 0.1 10^3/uL (0.0-0.8); Eosinophils % 1.5 %; Hematocrit 31.9 % (36-47); Lymphocytes # 1.6 10^3/uL (0.8-4.8); Lymphocytes % 19.6 %; Mean Corpuscular Hemoglobin 25.2 pg (27-33); Mean Platelet Volume 9.5 fL (7.4-10.4); Monocytes # 0.6 10^3/uL (0.2-0.9); Monocytes % 7.3 %; Neutrophils # 5.65 10^3/uL (1.8-7.7); Nucleated Red Blood Cells % 0 %; Platelet Count 359 10^3/cmm (157-399); Red Blood Count 4.04 10^6/uL (3.85-5.65); Red Cell Distribution Width 15.1 % (12.1-15.1); White Blood Count 7.95 10^3/uL (3.29-11.43)
[2024-02-01 16:52] LABS: Alanine Aminotransferase 20 U/L (0-33); Albumin Level 3.5 g/dL (3.5-5.2); Alkaline Phosphatase 116 U/L (35-105); Anion Gap 13.5 (5-19); Aspartate Amino Transferase 12 U/L (0-32); Blood Urea Nitrogen 11 mg/dL (6-20); Calcium 8.6 mg/dL (8.5-10.5); Carbon Dioxide 26 mmol/L (22-29); Chloride 104 mmol/L (98-107); Creatinine Clr Calc Pharmacy 146.7365; Globulin 3.3 g/dL (1.3-4.6); Glomerular Filtration Rate 151.6 mL/min (90-130); Glucose 112 mg/dL (65-115); Lipase 34 U/L (13-60); Osmolality Calculated 290 mOsm/kg (285-295); Potassium 3.5 mmol/L (3.5-5.1); Sodium 140 mmol/L (136-145); Total Bilirubin 0.2 mg/dL (0.15-1.2); Total Protein 6.8 g/dL (6.6-8.7)
[2024-02-01 16:55] LABS: HCG, Serum Qual Negative (Negative)
[2024-02-01] MEDS: iohexol 350 mg/mL 500 mL Btl (per mL) IV (17:03)
[2024-02-01 17:30] VITALS: BP 120/72; PULSE 73; O2SAT 96
[2024-02-01 17:59] LABS: Add Urine Microscopic? YES; Bilirubin Urine 1+ (Negative); Blood Urine Neg (Negative); Glucose Urine UA Norm (Normal); Ketones Urine Negative (Negative); Leukocyte Esterase Urine Negative (Negative); Nitrate Urine Negative (Negative); Urine Appearance Cloudy (CLEAR); Urine Color Yellow (Yellow); Urobilinogen Urine Norm (Negative)
[2024-02-01 18:04] LABS: Bacteria Urine 2+ /hpf; Mucus Urine 3+ /hpf; RBC Urine 0-4 /hpf (0-2); WBC Urine 15-25 /hpf (0-5)
[2024-02-01 18:05] LABS: Add Urine Culture? Yes
[2024-02-01 18:24] VITALS: BP 120/68; PULSE 78; O2SAT 99
[2024-02-01 19:57] LABS: Specific Gravity, Urine 1.025 (1.005-1.030); pH Urine 6 (5-7)
== END 2024-02-01 18:25 | disposition home or self-care (01) ==
PROVIDERS: Emergency Provider Emergency Medicine; PCP Nurse Practitioner Family
DX: K50.90 Crohn's disease, unspecified, without complications (principal); R10.84 Generalized abdominal pain
CPT/HCPCS: 74177; 80053; 81001; 83690; 84703; 85025; 87086; 96374; 96375; 99285; C9113; J2405; Q9967

== ENCOUNTER 2024-03-20 14:30 | Emergency (ER) | payer MEDICAID, SELFPAY ==
[2024-03-20 14:43] VITALS: BP 115/78; PULSE 73; RESP 16; TEMP 36.6; O2SAT 97; BMI 22.4
[2024-03-20] MEDS: sodium chloride 0.9% 1,000 ML 999 ML IV (15:01)
[2024-03-20 15:04] LABS: Basophils # 0.1 10^3/uL (0.0-0.1); Basophils % 0.6 %; Eosinophils # 0.1 10^3/uL (0.0-0.8); Eosinophils % 1.1 %; Hematocrit 35.4 % (36-47); Lymphocytes # 2.7 10^3/uL (0.8-4.8); Lymphocytes % 21.8 %; Mean Corpuscular HGB Conc 31.1 g/dL (30-55); Mean Corpuscular Hemoglobin 24.6 pg (27-33); Mean Platelet Volume 9.6 fL (7.4-10.4); Monocytes # 0.7 10^3/uL (0.2-0.9); Monocytes % 5.4 %; Neutrophils # 8.77 10^3/uL (1.8-7.7); Neutrophils % 70.7 %; Nucleated Red Blood Cells % 0 %; Platelet Count 394 10^3/cmm (157-399); Red Blood Count 4.48 10^6/uL (3.85-5.65); Red Cell Distribution Width 14.9 % (12.1-15.1); White Blood Count 12.41 10^3/uL (3.29-11.43)
--- NOTE | 2024-03-20 15:05 | ED_ITS ---
HPI - Weakness 2 General: Chief complaint: Weakness Stated complaint: dizzy, nausea Time Seen by Provider: 03/20/24 14:33 Source: patient Mode of arrival: ambulatory Limitations: no limitations History of Present Illness: 24-year-old female states she has a hist ory of Crohn's states she been having nausea diarrhea and vomiting over the last 4 to 5 days she has been on steroids for 5 days states she feels like she is getting dehydrated she has had generalized weakness with some cramping denies any severe abdominal pain denies any fevers denies any worse improved factors Associated symptoms: Reports nausea and vomiting; Denies chest pain, chills, dysuria, fever(s) or headache(s) Review of Systems 2 Const: Reports: change in appetite and malaise; Denies: fever(s), chills or body aches ENMT: Denies: throat pain or dental pain Card: Denies: chest pain Resp: Denies: dyspnea GI: Reports: nausea, vomiting and diarrhea; Denies: abdominal pain : Denies: dysuria Musc: Denies: neck pain or back pain Skin/Breast: Denies: rash Neuro: Denies: headache(s) PFSH ED 2 PFSH: Medical History Crohn disease No pertinent past medical history neghx: htn,dm,thyroid,dvt/pe PCP: none Surgical History History of tonsillectomy and adenoidectomy (~2006) Hx of wisdom tooth extraction (~2017) Family History Family/Other Colon cancer Paternal Great Uncle--dx age 43 Thyroid disease Maternal side in general Grandmother Diabetes Maternal Heart disease Maternal Hypertension Maternal Grandfather Heart disease Paternal Denies family history of Ovarian cancer Hypercholesteremia Breast cancer Uterine cancer Stroke Physical Exam 2 Const: COMMON NORMALS: no acute distress, patient oriented x3 and healthy appearing HENMT: COMMON NORMALS: normocephalic and atraumatic HEAD & SCALP: n ormocephalic and atraumatic Eye: COMMON NORMALS: Equal, round and reactive pupils present and EOMs intact bilaterally PUPIL: Yes Equal, round and reactive pupils present Neck/C-Spine: COMMON NORMALS: full ROM and supple Chest: COMMONS NORMALS: normal inspection of the chest and normal palpation of entire chest wall Resp: COMMON NORMALS: normal respiratory effort, No retractions, No use of accessory muscles and clear to auscultation bilaterally AUSCULTATION: clear to auscultation bilaterally Cardio: COMMON NORMALS: regular rate, regular rhythm and No murmurs present (Cardio) RATE: regular rate RHYTHM: regular rhythm GI: COMMON NORMALS: Normal to inspection, nondistended, normoactive bowel sounds present, Soft to palpation, non-tender and no masses PALPATION: Yes Soft to palpation Extremity: COMMON NORMALS: normal to inspection and full ROM Neuro: COMMON NORMALS: patient oriented x3, moves all extremities and no focal motor deficits Psych: COMMON NORMALS: mental status grossly normal, Normal thought process present and cooperative THOUGHT PROCESS: Normal thought process present Skin: COMMON NORMALS: no rashes or lesions noted and no wounds GENERAL SKIN EXAM: no rashes or lesions noted Course 2 Vital Signs: Vital signs: Vital Signs Temperature 97.8 F 03/20/24 14:43 Pulse Rate 74 03/20/24 16:30 Respiratory Rate 15 03/20/24 16:30 Blood Pressure 119/68 03/20/24 16:30 Pulse Oximetry 100 03/20/24 16:30 Oxygen Delivery Me thod Room Air 03/20/24 15:46 MDM - Weakness Medical Decision Making Patient presents here with vomiting diarrhea causing some weakness she feels improved. Her IV fluids blood work here is normal abdominal exam is benign no signs of acute surgical abdomen we will place her on Zofran she is follow-up with PCP return if worsening she understands agrees to plan Medical Records I reviewed the patient's medical records. Lab Data I reviewed the patient's lab results. 03/20/24 14:55 03/20/24 14:55 Laboratory Results WBC 12.41 10^3/uL (3.29-11.43) H 03/20/24 14:55 RBC 4.48 10^6/uL (3.85-5.65) 03/20/24 14:55 Hgb 11.00 g/dL (11.27-16.99) L 03/20/24 14:55 Hct 35.4 % (36-47) L 03/20/24 14:55 MCV 79.0 fl (85-98) L 03/20/24 14:55 MCH 24.6 pg (27-33) L 03/20/24 14:55 MCHC 31.1 g/dL (30-55) 03/20/24 14:55 RDW 14.9 % (12.1-15.1) 03/20/24 14:55 Plt Count 394 10^3/cmm (157-399) 03/20/24 14:55 MPV 9.6 fL (7.4-10.4) 03/20/24 14:55 Neut % (Auto) 70.7 % 03/20/24 14:55 Lymph % (Auto) 21.8 % 03/20/24 14:55 [place] % (Auto) 5.4 % 03/20/24 14:55 Eos % (Auto) 1.1 % 03/20/24 14:55 Baso % (Auto) 0.6 % 03/20/24 14:55 Neut # (Auto) 8.77 10^3/uL (1.8-7.7) H 03/20/24 14:55 Lymph # (Auto) 2.7 10^3/uL (0.8-4.8) 03/20/24 14:55 [place] # (Auto) 0.7 10^3/uL (0.2-0.9) 03/20/24 14:55 Eos # (Auto) 0.1 10^3/uL (0.0-0.8) 03/20/24 14:55 Baso # (Auto) 0.1 10^3/uL (0.0-0.1) 03/20/24 14:55 Nucleated RBC % (auto) 0 % 03/20/24 14:55 Nucleated RBCs # 0.0 /100WBC 03/20/24 14:55 Sodium 140 mmol/L (136-145) 03/20/24 14:55 Potassium 3.2 mmol/L (3.5-5.1) L 03/20/24 14:55 Chloride 104 mmol/L (98-107) 03/20/24 14:55 Carbon Dioxide 28 mmol/L (22-29) 03/20/24 14:55 Anion Gap 11.2 (5-19) 03/20/24 14:55 BUN 15 mg/dL (6-20) 03/20/24 14:55 Creatinine 0.6 mg/dL (0.5-0.9) 03/20/24 14:55 GFR Calculation 122.8 mL/min (90-130) 03/20/24 14:55 Glucose 104 mg/dL (65-115) 03/20/24 14:55 Calculated Osmolality 291 mOsm/kg (285-295) 03/20/24 14:55 Calcium 9.0 mg/dL (8.5-10.5) 03/20/24 14:55 Total Bilirubin 0.2 mg/dL (0.15-1.2) 03/20/24 14:55 AST 13 U/L (0-32) 03/20/24 14:55 ALT 11 U/L (0-33) 03/20/24 14:55 Alkaline Phosphatase 101 U/L (35-105) 03/20/24 14:55 Total Protein 7.3 g/dL (6.6-8.7) 03/20/24 14:55 Albumin 4.0 g/dL (3.5-5.2) 03/20/24 14:55 Globulin 3.3 g/dL (1.3-4.6) 03/20/24 14:55 Lipase 32 U/L (13-60) 03/20/24 14:55 HCG, Qual Negative (Negative) 03/20/24 14:55 No radiology studies performed this visit Discharge Plan Discharge Patient Disposition: Home Clinical Impression: Diarrhea, Vomiting Condition: Stable Prescriptions: New ondansetron 4 mg tablet,disintegrating 4 mg PO Q6H PRN (Reason: nausea and vomiting) Qty: 14 0RF No Action ondansetron 4 mg tablet,disintegrating 4 mg PO Q6H PRN (Reason: nausea and vomiting) Qty: 14 0RF prednisone 10 mg tablet See Rx Instructions .ROUTE .COMPLEX Rx Instructions: TAKE 4 TABLETS BY MOUTH DAILY FOR 7 DAYS, 3 TABLETS DAILY FOR 7 DAYS, 2 TABLETS DAILY FOR 7 DAYS, 1.5 TABLETS DAILY FOR 7 DAYS, 1 TABLET DAILY FOR 7 DAYS, THEN 0.5 TABLET DAILY FOR 7 DAYS. FeroSul 325 mg (65 mg iron) tablet 325 mg PO DAILY bupropion HCl 150 mg tablet extended release 24 hr 150 mg PO DAILY drospirenone-ethinyl estradiol 3-0.02 mg tablet 1 tab PO DAILY Symbicort 160-4.5 mcg/actuation HFA aerosol inhaler 2 puff INHALATION BID Discharge Orders: Discharge ED (Routine); Ordered 03/20/24 Ordered By: Katelyn Hernandez Referrals: ALICIA ESPARZA FNP-C [Primary Care Provider] - Discharge Diet: Advance as tolerated Discharge Activity: Resume usual activity Patient Instructions: Diarrhea - Adult, Acute Nausea and Vomiting (ED) Coding Level of Care Code ED Clinical Services Assistant for Maeve Hooper
[2024-03-20] MEDS: ondansetron 2 mg/ML SDV 2 mL 4 MG IVP (15:10)
[2024-03-20 15:20] LABS: HCG, Serum Qual Negative (Negative)
[2024-03-20 15:22] LABS: Alanine Aminotransferase 11 U/L (0-33); Alkaline Phosphatase 101 U/L (35-105); Anion Gap 11.2 (5-19); Aspartate Amino Transferase 13 U/L (0-32); Blood Urea Nitrogen 15 mg/dL (6-20); Carbon Dioxide 28 mmol/L (22-29); Chloride 104 mmol/L (98-107); Creatinine Clr Calc Pharmacy 119.5452; Globulin 3.3 g/dL (1.3-4.6); Glomerular Filtration Rate 122.8 mL/min (90-130); Glucose 104 mg/dL (65-115); Lipase 32 U/L (13-60); Osmolality Calculated 291 mOsm/kg (285-295); Potassium 3.2 mmol/L (3.5-5.1); Sodium 140 mmol/L (136-145); Total Bilirubin 0.2 mg/dL (0.15-1.2); Total Protein 7.3 g/dL (6.6-8.7)
[2024-03-20] MEDS: potassium chloride ER 20 mEq Tablet 40 MEQ PO (15:36)
[2024-03-20 15:46] VITALS: PULSE 77; RESP 14; O2SAT 100
[2024-03-20 16:30] VITALS: BP 119/68; PULSE 74; RESP 15; O2SAT 100
== END 2024-03-20 16:38 | disposition home or self-care (01) ==
PROVIDERS: Physician Assistant; Emergency Provider Emergency Medicine; PCP Nurse Practitioner Family
DX: R19.7 Diarrhea, unspecified (principal); R11.11 Vomiting without nausea
CPT/HCPCS: 80053; 83690; 84703; 85025; 96361; 96374; 99284; J2405; J7030

== ENCOUNTER 2024-08-22 09:16 | Emergency (ER) | payer MEDICAID, SELFPAY ==
[2024-08-22 09:46] VITALS: PULSE 86; RESP 18; TEMP 36.7; O2SAT 100; BMI 22.1
[2024-08-22 10:42] LABS: Basophils % 0.4 %; Eosinophils % 0.6 %; Hematocrit 32.1 % (36-47); Lymphocytes # 1.3 10^3/uL (0.8-4.8); Lymphocytes % 18.3 %; Mean Corpuscular HGB Conc 32.4 g/dL (30-55); Mean Corpuscular Hemoglobin 25.7 pg (27-33); Mean Corpuscular Volume 79.3 fl (85-98); Mean Platelet Volume 9.3 fL (7.4-10.4); Monocytes # 0.5 10^3/uL (0.2-0.9); Monocytes % 6.4 %; Neutrophils # 5.29 10^3/uL (1.8-7.7); Neutrophils % 73.9 %; Nucleated Red Blood Cells % 0 %; Platelet Count 285 10^3/cmm (157-399); Red Blood Count 4.05 10^6/uL (3.85-5.65); Red Cell Distribution Width 14.4 % (12.1-15.1); White Blood Count 7.16 10^3/uL (3.29-11.43)
[2024-08-22 11:04] LABS: Alanine Aminotransferase 8 U/L (0-33); Albumin Level 3.6 g/dL (3.5-5.2); Alkaline Phosphatase 100 U/L (35-105); Anion Gap 13.8 (5-19); Aspartate Amino Transferase 13 U/L (0-32); Blood Urea Nitrogen 6 mg/dL (6-20); Calcium 7.9 mg/dL (8.5-10.5); Carbon Dioxide 23 mmol/L (22-29); Chloride 106 mmol/L (98-107); Creatinine Clr Calc Pharmacy 142.4606; Globulin 2.9 g/dL (1.3-4.6); Glomerular Filtration Rate 151.6 mL/min (90-130); Glucose 79 mg/dL (65-115); Lipase 19 U/L (13-60); Osmolality Calculated 285 mOsm/kg (285-295); Potassium 3.8 mmol/L (3.5-5.1); Sodium 139 mmol/L (136-145); Total Bilirubin 0.4 mg/dL (0.15-1.2); Total Protein 6.5 g/dL (6.6-8.7)
--- NOTE | 2024-08-22 11:08 | ED_ITS ---
HPI - Nausea/Vomiting/Diarrhea 2 General: Chief complaint: Nausea/Vomiting/Diarrhea Stated complaint: 20 weeks pg, acid coming up, knot in throat Time Seen by Provider: 08/22/24 10:50 Source: patient Mode of arrival: ambulatory Limitations: no limitations History of Present Illness: 24-year-old female who is currently 20 w eeks and this is her fifth she states that she has had reflux along with vomiting throughout this states got worse in the last 5 days. She denies any lower abdominal pain currently she denies any vaginal bleeding denies any dysuria she has tried some Pepcid states it has not helped she has not taken any nausea medicine. Associated nausea: Yes Associated symtoms: Reports nausea; Denies chest pain, dysuria or headache(s) Related Data Home Medications Medication Instructions Recorded Confirmed budesonide-formoterol HFA 160 2 puff inhalation BID PRN 03/20/24 08/22/24 mcg-4.5 mcg/actuation aerosol Shortness Of Breath inhaler (Symbicort) bupropion HCl 150 mg 24 hr tablet, 150 mg PO DAILY 03/20/24 08/22/24 extended release ferrous sulfate 325 mg (65 mg 325 mg PO QPM 03/20/24 08/22/24 iron) tablet (FeroSul) famotidine 20 mg tablet (Pepcid AC) 20 mg PO DAILY 08/22/24 08/22/24 fluoride (sodium) 1.1 % dental See Rx Instructions .Route .COMPLEX 08/22/24 08/22/24 cream (Sodium Fluoride 5000 Plus) fluticasone propionate 50 1 spray intranasal BID PRN 08/22/24 08/22/24 mcg/actuation nasal allergies spray,suspension vit no.95-ferrous 1 tab PO QPM 08/22/24 08/22/24 fumarate 28 mg-folic acid 800 mcg tablet () Previous Rx's Medication Instructions Recorded cephalexin 500 mg capsule 500 mg PO TID 7 days #21 caps 08/22/24 metoclopramide HCl 10 mg tablet 10 mg PO Q6H PRN nausea and 08/22/24 (Reglan) vomiting #20 tabs Allergies Allergy/AdvReac Type Severity Reaction Status Date / Time Latex, Natural Rubber Allergy ADR-Itching Verified 03/25/22 18:44 Review of Systems 2 Const: Denies: fever(s), chills, body aches or change in appetite ENMT: Denies: throat pain or dental pain Card: Denies: chest pain Resp: Denies: dyspnea GI: Reports: abdominal pain, nausea and vomiting; Denies: diarrhea : Denies: dysuria Musc: Denies: neck pain or back pain Skin/Breast: Denies: rash Neuro: Denies: headache(s) PFSH ED 2 PFSH: Medical History Crohn disease No pertinent past medical history neghx: htn,dm,thyroid,dvt/pe PCP: none Surgical History History of tonsillectomy and adenoidectomy (~2006) Hx of wisdom tooth extraction (~2016) Family History Family/Other Colon cancer Paternal Great Uncle--dx age 43 Thyroid disease Maternal side in general Grandmother Diabetes Maternal Heart disease Maternal Hypertension Maternal Grandfather Heart disease Paternal Denies family history of Ovarian cancer Hypercholesteremia Breast cancer Uterine cancer Stroke Course 2 Vital Signs: Vital signs: Vital Signs Temperature 98.1 F 08/22/24 09:46 Pulse Rate 85 08/22/24 11:29 Respiratory Rate 16 08/22/24 11:29 Blood Pressure 116/60 08/22/24 11:29 Pulse Oximetry 100 08/22/24 11:29 Oxygen Delivery Me thod Room Air 08/22/24 11:29 MDM - Nausea/Vomiting/Diarrhea Medical Decision Making Patient presents with vomiting in she feels much improved here after Reglan she is able to tolerate p.o. She does have a UTI we will prescribe her Reglan for home along with Keflex she is to follow-up with PCP and return if worsening she understands agrees to plan I did a bedside ultrasound showed IUP consistent dates heart rate of 146 Medical Records I reviewed the patient's medical records. Lab Data I reviewed the patient's lab results. 08/22/24 10:31 08/22/24 10:31 Laboratory Results WBC 7.16 10^3/uL (3.29-11.43) 08/22/24 10:31 RBC 4.05 10^6/uL (3.85-5.65) 08/22/24 10:31 Hgb 10.40 g/dL (11.27-16.99) L 08/22/24 10:31 Hct 32.1 % (36-47) L 08/22/24 10:31 MCV 79.3 fl (85-98) L 08/22/24 10:31 MCH 25.7 pg (27-33) L 08/22/24 10:31 MCHC 32.4 g/dL (30-55) 08/22/24 10:31 RDW 14.4 % (12.1-15.1) 08/22/24 10:31 Plt Count 285 10^3/cmm (157-399) 08/22/24 10:31 MPV 9.3 fL (7.4-10.4) 08/22/24 10:31 Neut % (Auto) 73.9 % 08/22/24 10:31 Lymph % (Auto) 18.3 % 08/22/24 10:31 [place] % (Auto) 6.4 % 08/22/24 10:31 Eos % (Auto) 0.6 % 08/22/24 10:31 Baso % (Auto) 0.4 % 08/22/24 10:31 Neut # (Auto) 5.29 10^3/uL (1.8-7.7) 08/22/24 10:31 Lymph # (Auto) 1.3 10^3/uL (0.8-4.8) 08/22/24 10:31 [place] # (Auto) 0.5 10^3/uL (0.2-0.9) 08/22/24 10:31 Eos # (Auto) 0.0 10^3/uL (0.0-0.8) 08/22/24 10:31 Baso # (Auto) 0.0 10^3/uL (0.0-0.1) 08/22/24 10:31 Nucleated RBC % (auto) 0 % 08/22/24 10:31 Nucleated RBCs # 0.0 /100WBC 08/22/24 10:31 Sodium 139 mmol/L (136-145) 08/22/24 10:31 Potassium 3.8 mmol/L (3.5-5.1) 08/22/24 10:31 Chloride 106 mmol/L (98-107) 08/22/24 10:31 Carbon Dioxide 23 mmol/L (22-29) 08/22/24 10:31 Anion Gap 13.8 (5-19) 08/22/24 10:31 BUN 6 mg/dL (6-20) 08/22/24 10:31 Creatinine 0.5 mg/dL (0.5-0.9) 08/22/24 10:31 GFR Calculation 151.6 mL/min (90-130) H 08/22/24 10:31 Glucose 79 mg/dL (65-115) 08/22/24 10:31 Calculated Osmolality 285 mOsm/kg (285-295) 08/22/24 10:31 Calcium 7.9 mg/dL (8.5-10.5) L 08/22/24 10:31 Total Bilirubin 0.4 mg/dL (0.15-1.2) 08/22/24 10:31 AST 13 U/L (0-32) 08/22/24 10:31 ALT 8 U/L (0-33) 08/22/24 10:31 Alkaline Phosphatase 100 U/L (35-105) 08/22/24 10:31 Total Protein 6.5 g/dL (6.6-8.7) L 08/22/24 10:31 Albumin 3.6 g/dL (3.5-5.2) 08/22/24 10:31 Globulin 2.9 g/dL (1.3-4.6) 08/22/24 10:31 Lipase 19 U/L (13-60) 08/22/24 10:31 Urine Color [place] (Yellow) A 08/22/24 11:20 Urine Appearance Cloudy (CLEAR) A 08/22/24 11:20 Urine pH 5.5 (5-7) 08/22/24 11:20 Ur Specific [place] 1.028 (1.005-1.030) 08/22/24 11:20 Urine Protein Trace (Negative) A 08/22/24 11:20 Urine Glucose (UA) Negative (Normal) 08/22/24 11:20 Urine Ketones 2+ (Negative) H 08/22/24 11:20 Urine Blood Negative (Negative) 08/22/24 11:20 Urine Nitrate Negative (Negative) 08/22/24 11:20 Urine Bilirubin Negative (Negative) 08/22/24 11:20 Urine Urobilinogen 1.0 mg/dL (Negative) 08/22/24 11:20 Ur Leukocyte Esterase 2+ (Negative) A 08/22/24 11:20 Urine RBC 0-2 /hpf (0-2) 08/22/24 11:20 Urine WBC 21-50 /hpf (0-5) H 08/22/24 11:20 Ur Squamous Epith Cells 11-20 /hpf (0-5) 08/22/24 11:20 Amorphous Sediment Not Reportable 08/22/24 11:20 Urine Bacteria 2+ /hpf (NONE) H 08/22/24 11:20 Hyaline Casts 1.21 /lpf 08/22/24 11:20 No radiology studies performed this visit Discharge Plan Discharge Patient Disposition: Home Clinical Impression: Vomiting, , UTI (urinary tract infection) Condition: Stable Prescriptions: New cephalexin 500 mg capsule 500 mg PO TID 7 Days Qty: 21 0RF metoclopramide HCl [Reglan] 10 mg tablet 10 mg PO Q6H PRN (Reason: nausea and vomiting) Qty: 20 0RF No Action ferrous sulfate [FeroSul] 325 mg (65 mg iron) tablet 325 mg PO QPM bupropion HCl 150 mg tablet extended release 24 hr 150 mg PO DAILY budesonide-formoterol [Symbicort] 160-4.5 mcg/actuation HFA aerosol inhaler 2 puff INHALATION BID PRN (Reason: Shortness Of Breath) famotidine [Pepcid AC] 20 mg Tablet 20 mg PO DAILY fluticasone propionate 50 mcg/actuation spray,suspension 1 spray INTRANASAL BID PRN (Reason: allergies) fluoride (sodium) [Sodium Fluoride 5000 Plus] 1.1 % cream See Rx Instructions .ROUTE .COMPLEX Rx Instructions: PLACE SMALL AMOUNT ON TOOTHBRUSH AND BRUSH DAILY. [facility] cmb#95-ferrous fumarate-FA [] 28 mg iron- 800 mcg Tablet 1 tab PO QPM Discharge Orders: Discharge ED (Routine); Ordered 08/22/24 Ordered By: Katelyn Hernandez Referrals: ALICIA ESPARZA, [employer] [Primary Care Provider] - Discharge Diet: Advance as tolerated Discharge Activity: Resume usual activity Patient Instructions: Acute Nausea and Vomiting (ED), Urinary Tract Infection in (ED) Coding Level of Care Code ED [place] for Maeve Hooper
--- NOTE | 2024-08-22 11:15 | PC.PHAR ---
Removed several older medications from chart that pt states no longer takes. Current medications: Bupropion Hcl 150mg and Symbicort 160-4.5 inhaler have last fill date of 03/20/24-pt states still takes.
[2024-08-22 11:29] VITALS: BP 116/60; PULSE 85; RESP 16; O2SAT 100
[2024-08-22 11:29] LABS: Bilirubin Urine Negative (Negative); Blood Urine Negative (Negative); Glucose Urine UA Negative (Normal); Ketones Urine 2+ (Negative); Leukocyte Esterase Urine 2+ (Negative); Nitrate Urine Negative (Negative); Protein Urine Trace (Negative); Specific Gravity, Urine 1.028 (1.005-1.030); Urine Appearance Cloudy (CLEAR); pH Urine 5.5 (5-7)
[2024-08-22 11:31] LABS: Add Urine Microscopic? YES; Bacteria Urine 2+ /hpf; Hyaline Casts Urine 1.21 /lpf; RBC Urine 0-2 /hpf (0-2); WBC Urine 21-50 /hpf (0-5)
[2024-08-22] MEDS: diphenhydrAMINE 50 mg/mL SDV 1mL IVP (11:33)
[2024-08-22] MEDS: metoclopramide 5 mg/mL SDV 2 mL 10 MG IVP (11:33)
[2024-08-22 11:41] LABS: Urine Color Orange (Yellow)
[2024-08-22 11:42] LABS: Add Urine Culture? Yes
[2024-08-22 12:00] VITALS: BP 96/58; PULSE 83; RESP 16; O2SAT 100
[2024-08-22] MEDS: cefTRIAXone 1,000 mg SDV 1000 MG IVP (12:15)
[2024-08-22 12:45] VITALS: BP 121/61; PULSE 87; RESP 16; O2SAT 100
== END 2024-08-22 12:31 | disposition home or self-care (01) ==
PROVIDERS: Emergency Provider Emergency Medicine; PCP Nurse Practitioner Family
DX: O21.2 Late vomiting of pregnancy (principal); O23.42 Unspecified infection of urinary tract in pregnancy, second trimester; N39.0 Urinary tract infection, site not specified; Z3A.20 20 weeks gestation of pregnancy
CPT/HCPCS: 36415; 80053; 81001; 83690; 85025; 87086; 96374; 96375; 99284; J0696; J1200; J2765

== ENCOUNTER 2024-11-05 16:21 | Outpatient (CLI) | payer MEDICAID, SELFPAY ==
[2024-11-05] VITALS (12 sets, daily range): BP systolic 107; BP diastolic 62; PULSE 72–96; RESP 17; O2SAT 97–99; BMI 25.0
== END 2024-11-05 17:30 | disposition home or self-care (01) ==
LOC: OPOB 16:26 → OBGYN 16:26
PROVIDERS: PCP Nurse Practitioner Family; Visit Provider Family Medicine
DX: O26.899 Other specified pregnancy related conditions, unspecified trimester (principal); Z3A.00 Weeks of gestation of pregnancy not specified
CPT/HCPCS: 59025; 99211

== ENCOUNTER 2024-11-21 17:00 | Outpatient (CLI) | payer MEDICAID, SELFPAY ==
[2024-11-21 17:05] VITALS: BMI 25.0
[2024-11-21 17:13] VITALS: BP 120/76; PULSE 73
== END 2024-11-21 18:00 | disposition home or self-care (01) ==
LOC: OPOB 17:06 → OBGYN 17:06
PROVIDERS: PCP Nurse Practitioner Family; Visit Provider Family Medicine
DX: O26.899 Other specified pregnancy related conditions, unspecified trimester (principal); Z3A.00 Weeks of gestation of pregnancy not specified; R10.2 Pelvic and perineal pain
CPT/HCPCS: 59025; 99211

== ENCOUNTER 2025-02-26 00:11 | Emergency (ER) | payer MEDICAID, SELFPAY ==
[2025-02-26 00:13] VITALS: BP 108/73; PULSE 72; RESP 14; TEMP 36.8; O2SAT 100; BMI 23.8
--- NOTE | 2025-02-26 00:28 | W.ED.URI ---
HPI - URI/Sore Throat General: Chief Complaint: Upper Respiratory Infection Stated Complaint: Ears Burning and Itching Time Seen by Provider: 02/26/25 00:18 Source: patient Mode of arrival: ambulatory Limitations: no limitations History of Present Illness: Patient is a 25-year-old female who presents the emergency department with upper respiratory complaints. Notes that for 2 days, she has had bilateral ear pain, a rash, sore throat, and mild cough. States that her son has been sick with undiagnosed illness. She has not been running any fevers, has not taken any [id number] medications. With the rash, denies any known contact exposure, new detergents or bedding, or other concerning historical elements. Vitals are normal at this time. MD elicited complaint: cough and sore throat Onset (ago): day(s) Consistency: constant Severity: mild Context: sick contacts Associated symptoms: Reports ear or mastoid pain; Deny abdominal pain, chills, chest pain, diarrhea, fever(s), headache(s), nausea or vomiting Related Data Home Medications ?Medication ?Instructions ?Recorded ?Confirmed budesonide-formoterol HFA 160 2 puff inhalation BID PRN 03/20/24 01/02/25 mcg-4.5 mcg/actuation aerosol Shortness Of Breath inhaler (Symbicort) bupropion HCl 150 mg 24 hr tablet, 150 mg PO DAILY 03/20/24 01/02/25 extended release ferrous sulfate 325 mg (65 mg 325 mg PO QPM 03/20/24 01/02/25 iron) tablet (FeroSul) famotidine 20 mg tablet (Pepcid AC) 20 mg PO DAILY 08/22/24 01/02/25 fluoride (sodium) 1.1 % dental See Rx Instructions .Route .COMPLEX 08/22/24 01/02/25 cream (Sodium Fluoride 5000 Plus) fluticasone propionate 50 1 spray intranasal BID PRN 08/22/24 01/02/25 mcg/actuation nasal allergies spray,suspension vit no.95-ferrous 1 tab PO QPM 08/22/24 01/02/25 fumarate 28 mg-folic acid 800 mcg tablet () Previous Rx's ?Medication ?Instructions ?Recorded metoclopramide HCl 10 mg tablet 10 mg PO Q6H PRN nausea and 08/22/24 (Reglan) vomiting #20 tabs cyclobenzaprine 10 mg tablet 10 mg PO TID PRN muscle spasm #30 01/02/25 tabs azithromycin 500 mg tablet 500 mg PO DAILY 5 days #5 tabs 02/26/25 prednisone 20 mg tablet 60 mg (3 x 20 mg) PO ONCE 5 days 02/26/25 #15 tabs Allergies Allergy/AdvReac Type Severity Reaction Status Date / Time Latex, Natural Rubber Allergy ADR-Itching Verified 02/26/25 00:18 Review of Systems General: Reports: 10 or more systems reviewed and unremarkable except in HPI and below Const: Denies: fever(s), chills or fatigue Eyes: Denies: change in vision ENMT: Reports: throat pain and ear or mastoid pain; Denies: nasal discharge Card: Denies: chest pain, palpitations, swelling of feet/ankles or lightheadedness Resp: Reports: non-productive cough; Denies: dyspnea, productive cough or wheezing GI: Denies: abdominal pain, nausea, vomiting, diarrhea or constipation : Denies: flank pain, difficulty voiding, dysuria or urinary frequency Musc: Denies: neck pain, back pain or joint pain Skin/Breast: Reports: rash Neuro: Denies: headache(s), numbness in extremities or weakness in extremities PFSH ED PFSH: Medical History Crohn disease No pertinent past medical history neghx: htn,dm,thyroid,dvt/pe PCP: none Surgical History History of tonsillectomy and adenoidectomy (~2006) Hx of wisdom tooth extraction (~2017) Family History Family/Other Colon cancer Paternal Great Uncle--dx age 43 Thyroid disease Maternal side in general Grandmother Diabetes Maternal Heart disease Maternal Hypertension Maternal Grandfather Heart disease Paternal Denies family history of Ovarian cancer Hypercholesteremia Breast cancer Uterine cancer Stroke Social History Smoking and tobacco/nicotine status: never used tobacco/nicotine Physical Exam Const: COMMON NORMALS: no acute distress and healthy appearing GENERAL APPEARANCE: cooperative, comfortable and well developed HENMT: COMMON NORMALS: normocephalic, atraumatic, hearing grossly normal bilaterally, external ears normal, EAC's normal, TM's normal bilaterally, Normal external nose present and Normal nasal mucous membranes and turbinates present HEAD & SCALP: normal to inspection, normocephalic and atraumatic FACE & SINUS: normal facial exam and sinuses nontender NOSE: Normal external nose present, Normal nares present, No nasal polyps present and Normal nasal mucous membranes and turbinates present EXTERNAL EAR: Yes external ears normal EXTERNAL AUDITORY CANAL: EAC's normal TYMPANIC MEMBRANE: TM's normal bilaterally MOUTH: Normal oral and palatal mucosa present THROAT: posterior oropharynx normal and tonsils normal Eye: COMMON NORMALS: EOMs intact bilaterally, conjunctivae normal and normal visual rene by confrontation GENERAL EYE: appearance normal, both eyes and all related structures CONJUNCTIVA: Yes conjunctivae normal Neck/C-Spine: COMMON NORMALS: full ROM, supple and no meningeal signs GENERAL: Yes normal visual inspection and Yes lymphadenopathy Lymphadenopathy location: anterior cervical tender Chest: COMMONS NORMALS: normal inspection of the chest Resp: COMMON NORMALS: normal respiratory effort and clear to auscultation bilaterally EFFORT & INSPECTION: Yes able to speak in complete sentences AUSCULTATION: clear to auscultation bilaterally Cardio: COMMON NORMALS: regular rate, regular rhythm, S1 normal heart sound present and S2 normal heart sound present RATE: regular rate RHYTHM: regular rhythm HEART SOUNDS: S1 normal heart sound present, S2 normal heart sound present, no gallops, no murmurs and no rubs GI: COMMON NORMALS: Soft to palpation and No hepatosplenomegaly present INSPECTION: Yes normal to inspection PALPATION: Yes Soft to palpation and Yes No hepatosplenomegaly present Extremity: COMMON NORMALS: normal to inspection, full ROM and capillary refill normal Neuro: MENINGEAL SIGNS: Yes no meningeal signs Skin: COMMON NORMALS: no rashes or lesions noted GENERAL SKIN EXAM: no rashes or lesions noted Course Vital Signs: Vital signs: Vital Signs Temperature 98.2 F 02/26/25 00:13 Pulse Rate 72 02/26/25 00:13 Respiratory Rate 14 02/26/25 00:13 Blood Pressure 108/73 02/26/25 00:13 Pulse Oximetry 100 02/26/25 00:13 MDM - URI/Sore Throat Medical Decision Making Patient presenting with upper respiratory complaints. Her vitals were normal, exam unremarkable, there was some tender lymphadenopathy and I suspect a viral URI. However will prophylactically treat with azithromycin and prednison, have her see her regular doctor and continue Zyrtec just in case this is related to allergies. Stable for discharge home with general return precautions given. No radiology studies performed this visit Discharge Plan Discharge Patient Disposition: Home Clinical Impression: URI (upper respiratory infection) Condition: Stable Prescriptions: New prednisone 20 mg tablet 60 mg PO ONCE 5 Days Qty: 15 0RF azithromycin 500 mg tablet 500 mg PO DAILY 5 Days Qty: 5 0RF No Action cyclobenzaprine 10 mg tablet 10 mg PO TID PRN (Reason: muscle spasm) Qty: 30 0RF ferrous sulfate [FeroSul] 325 mg (65 mg iron) tablet 325 mg PO QPM bupropion HCl 150 mg tablet extended release 24 hr 150 mg PO DAILY budesonide-formoterol [Symbicort] 160-4.5 mcg/actuation HFA aerosol inhaler 2 puff INHALATION BID PRN (Reason: Shortness Of Breath) famotidine [Pepcid AC] 20 mg Tablet 20 mg PO DAILY fluticasone propionate 50 mcg/actuation spray,suspension 1 spray INTRANASAL BID PRN (Reason: allergies) fluoride (sodium) [Sodium Fluoride 5000 Plus] 1.1 % cream See Rx Instructions .ROUTE .COMPLEX Rx Instructions: PLACE SMALL AMOUNT ON TOOTHBRUSH AND BRUSH DAILY. [facility] cmb#95-ferrous fumarate-FA [] 28 mg iron- 800 mcg Tablet 1 tab PO QPM metoclopramide HCl [Reglan] 10 mg tablet 10 mg PO Q6H PRN (Reason: nausea and vomiting) Qty: 20 0RF Discharge Orders: Discharge ED (Routine); Ordered 02/26/25 Ordered By: George Mccracken Referrals: ALICIA ESPARZA, [employer]-C [Primary Care Provider] - Patient Instructions: Viral Syndrome (ED) Activity Restrictions/Additional Instructions: Azithromycin and prednisone. Ibuprofen and Tylenol. Drink plenty of fluids. Follow-up routinely with regular provider for reevaluation. Return with any new or worsening. Continue Zyrtec for allergies. Print Language: [place]i Coding Level of Care Code ED Commercial Litigation Associate for Maeve Hooper
[2025-02-26] MEDS: azithromycin 250 mg Tablet 500 MG PO (00:32)
[2025-02-26] MEDS: dexamethasone 10 mg/mL INJ IM (00:32)
[2025-02-26 00:40] VITALS: BP 110/63; PULSE 61; O2SAT 97
== END 2025-02-26 00:37 | disposition home or self-care (01) ==
PROVIDERS: Emergency Provider Physician Assistant; PCP Nurse Practitioner Family
DX: J06.9 Acute upper respiratory infection, unspecified (principal)
CPT/HCPCS: 96372; 99284; J1100; Q0144

== ENCOUNTER 2025-04-10 10:02 | Oncology outpatient (recurring) (ONCR) | payer MEDICAID, SELFPAY ==
[2025-04-10] MEDS: eptinezumab-jjmr 300 MG in sodium chloride 0.9% (100 ml) 100 ML 206 MG IV (11:06)
[2025-04-10] MEDS: sodium chloride 0.9% 250 ML 75 ML IV (11:10)
[2025-04-10 11:54] VITALS: BP 103/66; PULSE 69; RESP 17; TEMP 36.6; O2SAT 96
== END 2025-05-06 23:59 | disposition home or self-care (01) ==
PROVIDERS: PCP Nurse Practitioner Family; Visit Provider Nurse Practitioner Family
DX: G43.909 Migraine, unspecified, not intractable, without status migrainosus (principal); Z79.620 Long term (current) use of immunosuppressive biologic; Z79.899 Other long term (current) drug therapy
CPT/HCPCS: 96413; J3032; J7050

== ENCOUNTER → 2025-06-03 18:47 | Outpatient (BNVA) | payer MEDICAID, SELFPAY | PROVIDERS: PCP Nurse Practitioner Family; Visit Provider Physician Assistant | DX: J02.9 Acute pharyngitis, unspecified (principal); R05.9 Cough, unspecified | CPT/HCPCS: 87071; 87400; 87880 ==

== ENCOUNTER 2025-08-27 14:31 | Oncology outpatient (recurring) (ONCR) | payer MEDICAID, SELFPAY ==
[2025-08-27 15:19] LABS: Hematocrit 31.0 % (36-47); Hemoglobin 9.90 g/dL (11.27-16.99); Mean Corpuscular HGB Conc 31.9 g/dL (30-55); Mean Corpuscular Hemoglobin 24.5 pg (27-33); Mean Corpuscular Volume 76.7 fl (85-98); Nucleated Red Blood Cells % 0 %; Platelet Count 355 10^3/cmm (157-399); Red Blood Count 4.04 10^6/uL (3.85-5.65); White Blood Count 5.72 10^3/uL (3.29-11.43)
[2025-08-27 15:39] LABS: Alanine Aminotransferase 14 U/L (0-33); Albumin Level 3.8 g/dL (3.5-5.2); Alkaline Phosphatase 84 U/L (35-105); Anion Gap 15.1 (5-19); Aspartate Amino Transferase 14 U/L (0-32); Blood Urea Nitrogen 12 mg/dL (6-20); Calcium 8.7 mg/dL (8.5-10.5); Carbon Dioxide 26 mmol/L (22-29); Chloride 106 mmol/L (98-107); Creatinine Clr Calc Pharmacy 99.2302; Ferritin 13 ng/mL (15-150); Globulin 2.8 g/dL (1.3-4.6); Glucose 79 mg/dL (65-115); Iron 21 ug/dL (37-145); Osmolality Calculated 295 mOsm/kg (285-295); Potassium 4.1 mmol/L (3.5-5.1); Sodium 143 mmol/L (136-145); Total Iron Binding Capacity 263 mcg/dl; Total Protein 6.6 g/dL (6.6-8.7); Unsaturated Iron Binding 242 ug/dL (112-347)
[2025-08-27 15:55] LABS: Vitamin B12 591 pg/mL (232-1245)
== END 2025-09-06 23:59 | disposition home or self-care (01) ==
LOC: ONCMED 14:32
PROVIDERS: PCP Nurse Practitioner Family; Visit Provider Internal Medicine Medical Oncology
DX: K50.90 Crohn's disease, unspecified, without complications (principal); D50.9 Iron deficiency anemia, unspecified; N92.0 Excessive and frequent menstruation with regular cycle
CPT/HCPCS: 36415; 80053; 82607; 82728; 82746; 83540; 83550; 85025; 99204

== ENCOUNTER 2025-09-30 08:00 | Oncology outpatient (recurring) (ONCR) | payer SELFPAY ==
[2025-09-16] MEDS: iron sucrose 200 MG/100 ML BAG IV (14:37)
--- NOTE | 2025-09-24 15:29 | PC.NURSE ---
Called pt due to being a no show for her appt, pt did not answer so I left a message.
== END 2025-10-06 23:59 | disposition home or self-care (01) ==
PROVIDERS: PCP Nurse Practitioner Family; Visit Provider Internal Medicine Medical Oncology
DX: Z53.9 Procedure and treatment not carried out, unspecified reason (principal)
CPT/HCPCS: 96365; J1756